=== PATIENT | female | born 1935 | race Caucasian/White ===

== ENCOUNTER 2016-11-20 13:01 | Observation (INO) | payer OTHER ==
[2016-11-20] MEDS ORDERED: ASPIRIN 81 MG CHEWABLE TABLETS PO ONE (13:22)
[2016-11-20] MEDS ORDERED: ASPIRIN 81 MG CHEWABLE TABLETS ONE (13:30)
[2016-11-20 13:58] LABS: BASOPHIL 0.6 % (0-2.0); EOSINOPHIL 2.2 % (0-4.5); MCH 28.5 pg (25.7-33.7); MCHC 33.5 g/dl (32.0-36.0); MEAN CELL VOLUME 85.2 fl (80-96); MEAN PLT VOLUME 7.5 fl (7.5-11.1); NEUTROPHILS 73.8 % (42.8-82.8); PLATELET COUNT 201 K/MM3 (134-434); RDW 14.1 % (11.6-15.6); WHITE BLOOD COUNT 6.7 K/mm3 (4.0-10.0)
[2016-11-20 14:21] LABS: ALBUMIN 3.8 g/dl (3.4-5.0); ANION GAP 10 (8-16); CALCIUM 9.4 mg/dL (8.5-10.1); CO2 25 mmol/L (21-32); CREATININE 0.8 mg/dL (0.55-1.02); GLUCOSE,RANDOM 110 mg/dL (74-106); SGOT/AST 19 U/L (15-37); SGPT/ALT 25 U/L (12-78)
--- NOTE | 2016-11-20 14:24 | PDOC ---
History of Present Illness - General Chief Complaint: Chest Pain Stated Complaint: CHEST PAIN Time Seen by Provider: 11/20/16 13:21 History Source: Patient Exam Limitations: No Limitations - History of Present Illness Initial Comments: 11/20/16 14:24 CHIEF COMPLAINT: Chest pain HISTORY OF PRESENT ILLNESS: This is a 81-year-old female with a history of HTN, HLD, CAD s/p stent in 2006, GERD, HLD, colon ca s/p colectomy, and asthma/COPD who was sent by her elevator service technician today for evaluation of chest pain. She reports intermittent chest "pressure" since Sunday. Pain is provoked by exertion and relieved with rest. She reports associated diaphoresis. She denies shortness of breath and nausea/vomiting. She notes excessive fatigue for the past one month. She had similar fatigue prior to her previous PCI/stent. PCP is Dr. Hardin. Former smoker, quit 30 yrs ago. REVIEW OF SYSTEMS: GENERAL/CONSTITUTIONAL: Fatigue. No fever or chills. No weakness. No weight change. HEAD, EYES, EARS, NOSE AND THROAT: No change in vision. No ear pain or discharge. No sore throat. CARDIOVASCULAR: See HPI. RESPIRATORY: No cough, wheezing, or shortness of breath. GASTROINTESTINAL: Sensation of upper abdominal "swelling." No nausea, vomiting, diarrhea or constipation. GENITOURINARY: No dysuria, frequency, or change in urination. MUSCULOSKELETAL: No joint or muscle swelling or pain. No neck or back pain. SKIN: No rash or easy bruising. NEUROLOGIC: No headache, vertigo, loss of consciousness, or loss of sensation. PSYCHIATRIC: No depression or anxiety. ENDOCRINE: No increased thirst. No abnormal weight change. HEMATOLOGIC/LYMPHATIC: No anemia, easy bleeding, or history of blood clots. ALLERGIC/IMMUNOLOGIC: No hives or skin allergy. No latex allergy. PHYSICAL EXAM: GENERAL: The patient is awake, alert, and fully oriented, in no acute distress. ENT: Pupils equal, round and reactive to light, extraocular movements intact, sclera anicteric, conjunctiva clear. Neck supple. LUNGS: Clear to auscultation bilaterally. Normal excursion. No respiratory distress or use of accessory muscles. CV: RRR, S1/S2, no MRG. Cap refill < 2 sec. ABDOMEN: Soft, non-distended, non-tender. EXTREMITIES: Normal range of motion, no edema. NEUROLOGICAL: Normal speech, normal gait. CN II-XII grossly intact. PSYCH: Normal mood, normal affect. SKIN: Warm, dry, normal turgor, no rashes or lesions noted. Past History - Past Medical History Allergies/Adverse Reactions: Allergies Allergy/AdvReac Type Severity Reaction Status Date / Time Penicillins Allergy Intermediate Hives Verified 11/20/16 13:15 ibuprofen [From Advil] Allergy "heart Verified 11/20/16 13:15 attack like symptoms Home Medications: Ambulatory Orders Aspirin 81 mg PO DAILY 08/08/13 Candesartan Cilexetil [Atacand] 4 mg PO DAILY 08/08/13 Ferrous Sulfate 325 mg PO DAILY 08/08/13 Fluticasone/Salmeterol [Advair Hfa 115-21 Mcg Inhaler] 1 inh PO BID 08/08/13 Metoprolol Succinate [Toprol XL -] 50 mg PO DAILY 08/08/13 Ranitidine [Zantac -] 150 mg PO BID 08/08/13 Albuterol 0.083% Nebulizer Aaliyah [Ventolin 0.083% Nebulizer Soln -] 1 amp NEB QID PRN 11/20/16 Albuterol Sulfate [Proair Respiclick] 1 inh IH DAILY PRN 11/20/16 Ascorbate Calcium [Vitamin C] 500 mg PO DAILY 11/20/16 Atorvastatin Ca [Lipitor] 20 mg PO HS 11/20/16 Furosemide [Lasix] 20 mg PO Q2D 11/20/16 Iron Ps Cmplx/Vit B12/FA [Poly-Iron 150 Forte Capsule] 1 cap PO DAILY 11/20/16 Potassium Chloride 10 meq PO Q2D 11/20/16 Roflumilast [Daliresp] 500 mg PO DAILY 11/20/16 Vitamin B-12 1,000 units PO DAILY 11/20/16 Vitamin D3 1,000 units PO DAILY 11/20/16 Anemia: No Asthma: Yes Cancer: No Cardiac Disorders: Yes (stent (2006)) CVA: No COPD: No CHF: No Dementia: No Diabetes: Yes GI Disorders: Yes (reflux) Disorders: No HTN: Yes Hypercholesterolemia: Yes Liver Disease: No Seizures: No Thyroid Disease: Yes (nodules) - Surgical History Abdominal Surgery: No Appendectomy: No Cardiac Surgery: Yes (stent 2007) Cholecystectomy: No Lung Surgery: No Neurologic Surgery: No Orthopedic Surgery: No - Psycho/Social/Smoking Cessation Hx Suicidal Ideation: No Smoking History: Former smoker Have you smoked in the past 12 months: No If you are a former smoker, when did you quit?: 30 YEARS AGO Information on smoking cessation initiated: No Hx Alcohol Use: No Drug/Substance Use Hx: No Substance Use Type: None Hx Substance Use Treatment: No *Physical Exam - Vital Signs Last Vital Signs Temp Pulse Resp BP Pulse Ox 98.0 F 84 16 155/89 98 11/20/16 13:10 11/20/16 13:10 11/20/16 13:10 11/20/16 13:10 11/20/16 13:10 Heart Score/ECG Review - History History: Highly suspicious - Electrocardiogram EKG: Normal - Age Age: >/= 65 - Risk Factors Risk Factors Heart Score: Yes Hx Hypercholesterolemia, Yes Hx Hypertension, Yes Smoking History Based on the list above the patient has:: >/=3 risk factors or Hx atherosclerotic disease - Troponin Troponin: </= normal limit - Score Heart Score - Total: 6 - ECG Intrepretation Comment:: 11/20/16 14:37 Sinus arrhythmia, 77bpm. ED Treatment Course - LABORATORY CBC & Chemistry Diagram: 11/20/16 12:48 11/20/16 12:48 - ADDITIONAL ORDERS Additional order review: Laboratory Results 11/20/16 12:48 Sodium 142 Potassium 4.1 D Chloride 107 Carbon Dioxide 25 Anion Gap 10 BUN 17 D Creatinine 0.8 Creat Clearance w eGFR > 60 Random Glucose 110 H D Calcium 9.4 AST 19 ALT 25 D Albumin 3.8 11/20/16 12:48 RBC 4.43 D MCV 85.2 MCHC 33.5 RDW 14.1 D MPV 7.5 Neutrophils % 73.8 Lymphocytes % 17.1 Monocytes % 6.3 Eosinophils % 2.2 D Basophils % 0.6 - RADIOLOGY Radiology Studies Ordered: Category Date Time Status CHEST X-RAY PORTABLE* [RAD] Stat Radiology 11/20/16 13:22 Ordered - Medications Given in the ED: ED Medications Discontinued Medications Generic Name Dose Route Start Last Admin Trade Name Freq PRN Reason Stop Dose Admin Aspirin 162 mg 11/20/16 13:22 11/20/16 13:28 Asa - PO 11/20/16 13:23 162 mg ONCE ONE Administration Medical Decision Making - Medical Decision Making 11/20/16 14:35 A/P: 81 year old female with chest discomfort. 1. EKG 2. CXR 3. Cardiac labs 4. ASA 162mg 5. Anticipate admission vs. observation 11/20/16 14:42 CXR: No acute process Troponin <0.02 Will admit to telemetry- discussed with Dr. Medeiros and Dr. Li. *DC/Admit/Observation/Transfer Diagnosis at time of Disposition: Chest pain Qualifiers: Chest pain type: unspecified Qualified Code(s): R07.9 - Chest pain, unspecified - Discharge Dispostion Admit: Yes
[2016-11-20 14:25] LABS: ALK PHOS 62 U/L (45-117); BILIRUBIN,TOTAL 0.7 mg/dL (0.2-1.0); CPK 145 IU/L (26-192); TOT PROT 7.2 g/dl (6.4-8.2); TROPONIN I < 0.02 ng/ml (0.00-0.05)
[2016-11-20 14:34] LABS: INR 1.02 (0.82-1.09); PROTHROMBIN TIME (PATIENT) 11.2 SEC (9.98-11.88)
[2016-11-20] MEDS ORDERED: ALBUTEROL SULFATE IH PRN (15:20)
[2016-11-20] MEDS ORDERED: ACETAMINOPHEN 325 MG TABLET (FP) PO PRN (15:24)
[2016-11-20] MEDS ORDERED: ONDANSETRON 4 MG/2 ML VIAL IVPB PRN (15:24)
[2016-11-20] MEDS ORDERED: NITROGLYCERIN SUBLINGUAL 1/200 0.3 MG BTL SL PRN (15:27)
--- NOTE | 2016-11-20 15:29 | HP ---
Admitting History and Physical - Primary Care Physician PCP: Juan José Hardin - Admission Chief Complaint: I had pressure in my chest History of Present Illness: Mrs Krishna is a very pleasant 81 year old female who comes in with chest pressure. She said it started after eating breakfast. She says it is a heaviness that sits in the middle of her chest. It radiated down her right arm. She felt in mainly on exertion and it would resolve with rest. She had diaphoresis, shortness of breath, anxiety, fatigue, and heartburn associated with it. She is currently pain free now. She denies fevers, chills, lightheadedness, passing out, palpitations, fluttering, coughing, nausea/ vomiting, diarrhea, constipation, difficulty or pain on urination, or swelling. History Source: Patient Limitations to Obtaining History: No Limitations - Past Medical History Cardiovascular: Yes: CAD, HTN Pulmonary: Yes: COPD Gastrointestinal: Yes: Cancer (colon) Endocrine: Yes: Diabetes Mellitus - Past Surgical History Past Surgical History: Yes: Tonsillectomy - Smoking History Smoking history: Former smoker Have you smoked in the past 12 months: No If you are a former smoker, when did you quit?: 30 YEARS AGO - Alcohol/Substance Use Hx Alcohol Use: No History of Substance Use: reports: None - Social History Usual Living Arrangement: Yes: With Spouse ADL: Independent History of Recent Travel: No Home Medications - Allergies Allergies/Adverse Reactions: Allergies Allergy/AdvReac Type Severity Reaction Status Date / Time Penicillins Allergy Intermediate Hives Verified 11/20/16 13:15 ibuprofen [From Advil] Allergy "heart Verified 11/20/16 13:15 attack like symptoms - Home Medications Home Medications: Ambulatory Orders Aspirin 81 mg PO DAILY 08/08/13 Candesartan Cilexetil [Atacand] 4 mg PO DAILY 08/08/13 Ferrous Sulfate 325 mg PO DAILY 08/08/13 Fluticasone/Salmeterol [Advair Hfa 115-21 Mcg Inhaler] 1 inh PO BID 08/08/13 Metoprolol Succinate [Toprol XL -] 50 mg PO DAILY 08/08/13 Ranitidine [Zantac -] 150 mg PO BID 08/08/13 Albuterol 0.083% Nebulizer Aaliyah [Ventolin 0.083% Nebulizer Soln -] 1 amp NEB QID PRN 11/20/16 Albuterol Sulfate [Proair Respiclick] 1 inh IH DAILY PRN 11/20/16 Ascorbate Calcium [Vitamin C] 500 mg PO DAILY 11/20/16 Atorvastatin Ca [Lipitor] 20 mg PO HS 11/20/16 Furosemide [Lasix] 20 mg PO Q2D 11/20/16 Iron Ps Cmplx/Vit B12/FA [Poly-Iron 150 Forte Capsule] 1 cap PO DAILY 11/20/16 Potassium Chloride 10 meq PO Q2D 11/20/16 Roflumilast [Daliresp] 500 mg PO DAILY 11/20/16 Vitamin B-12 1,000 units PO DAILY 11/20/16 Vitamin D3 1,000 units PO DAILY 11/20/16 Family Disease History - Family Disease History Family Disease History: Heart Disease: Mother, CA: Father Review of Systems Findings/Remarks: Full review of systems obtained, as per HPI and otherwise negative Physical Examination Vital Signs: Vital Signs Temperature 36.7 C 11/20/16 13:10 Pulse Rate 84 11/20/16 13:10 Respiratory Rate 16 11/20/16 13:10 Blood Pressure 155/89 11/20/16 13:10 O2 Sat by Pulse Oximetry (%) 98 11/20/16 13:10 Constitutional: Yes: Well Nourished, No Distress, Calm Eyes: Yes: Conjunctiva Clear, EOM Intact, PERRL HENT: Yes: Atraumatic, Normocephalic Cardiovascular: Yes: Regular Rate and Rhythm. No: Gallop, Murmur, Rub Respiratory: Yes: Regular, CTA Bilaterally. No: Rales, Rhonchi, Wheezes Gastrointestinal: Yes: Normal Bowel Sounds, Soft. No: Distention, Tenderness Extremities: Yes: WNL Edema: No Labs: CBC, BMP 11/20/16 12:48 11/20/16 12:48 Imaging - Results Chest X-ray: Report Reviewed, Image Reviewed EKG: Image Reviewed Problem List - Problems (1) Unstable angina Assessment/Plan: -patient presents with exertional angina -new in onset and similar to previous episodes of AMI -however first set of cardiac enzymes negative -also EKG unchanged -admit to telemetry under observation -cardiology consult, followed by Dr Li -cardiac enzymes x3 -will make npo after midnight for possible stress test Code(s): I20.0 - UNSTABLE ANGINA (2) HTN (hypertension) Assessment/Plan: -controlled -continue home regimen Code(s): I10 - ESSENTIAL (PRIMARY) HYPERTENSION (3) CAD (coronary artery disease) Assessment/Plan: -cardiology consult -continue home regimen -cardiac enzymes as above Code(s): I25.10 - ATHSCL HEART DISEASE OF [place] CORONARY ARTERY W/O ANG PCTRS (4) COPD (chronic obstructive pulmonary disease) Assessment/Plan: -not in exacerbation -continue home regimen Code(s): J44.9 - CHRONIC OBSTRUCTIVE PULMONARY DISEASE, UNSPECIFIED (5) HLD (hyperlipidemia) Assessment/Plan: -continue statin Code(s): E78.5 - HYPERLIPIDEMIA, UNSPECIFIED (6) Diabetes Assessment/Plan: -says has history of diabetes, however not on medication -diet controlled -diabetic diet, monitor glucose on bmp Code(s): E11.9 - TYPE 2 DIABETES MELLITUS WITHOUT COMPLICATIONS
--- NOTE | 2016-11-20 20:40 | CONS ---
DATE OF CONSULTATION: 11/20/2016 TIME OF CONSULTATION: 7:30 p.m. REQUESTING PHYSICIAN: Duane Medeiros MD CARDIOLOGY CONSULTATION CHIEF COMPLAINT: 1. Chest pain. 2. Shortness of breath. HISTORY OF PRESENT ILLNESS: The patient is a 81-year-old white female with longstanding history of coronary artery disease, angina pectoris, status post PCI/stenting, history of hypertension, dyslipidemia, gastroesophageal reflux disease, bronchial asthma, chronic obstructive pulmonary disease, history of proteinuria, who developed anterior pressure-like chest discomfort on Sunday, while having breakfast. This was accompanied by shortness of breath and diaphoresis. The pain radiated to the right elbow and lasted for approximately half an hour. She then started having recurrent episodes of chest discomfort with minimal exertion, lasting between 10-15 minutes and would ted spontaneously or if she rested. She states that she had 5-6 episodes yesterday. Most of these episodes were not accompanied by either shortness of breath or diaphoresis. Today, she developed chest discomfort on waking up in the morning that lasted for 5 minutes and was not accompanied by either diaphoresis or shortness of breath. She had recurrence of mild chest discomfort when she walked to her car that lasted no more than 2 minutes and had another episode while walking to her arm rest builder's office. She spoke to the arm rest builder about her symptoms, who asked her to come to my office. She states that when she walked to the office, she had recurrence of chest discomfort, which was mild. There is no history of exertional dyspnea, paroxysmal nocturnal dyspnea, or orthopnea. There is no history of lightheadedness, dizziness, presyncope, or syncope. PAST HISTORY: As mentioned in the History of Present Illness. SURGICAL HISTORY: 1. Status post tonsillectomy. 2. Status post partial colectomy for carcinoma of the colon. SOCIAL HISTORY: She is . 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 She has 4 children; 3 sons and a daughter who are all healthy. She smoked approximately 1 pack of cigarettes per day from age 23 to 50 years. She states that she stopped in between for a total of 5 years. There is no history of excessive alcohol use. She has one cup of coffee daily. On occasion, she has another cup at nighttime. FAMILY HISTORY: Father at 57, related to carcinoma of the lung. Mother at 72 of a myocardial infarction. Has 1 brother who has arthritis. ALLERGIES: 1. PENICILLIN CAUSES RASH AND HIVES. 2. ADVIL CAUSES PALPITATIONS. MEDICATIONS: Prior to admission, the patient was on the following medicines: 1. Daliresp 500 mg p.o. daily. 2. Zantac 150 mg p.o. b.i.d. 3. Lipitor 20 mg alternating with 40 mg. 4. Toprol XL 50 mg p.o. daily at bedtime. 5. Atacand 4 mg p.o. daily. 6. Lasix 20 mg p.o. daily. 7. Potassium supplement. Dose is uncertain, but 1 p.o. every other day. 8. Folic acid 1 mg p.o. daily. 9. Iron supplement 150 mg p.o. daily. 10. Advair 2 inhalations b.i.d. 11. Pro-Air 1 inhalations q.i.d. p.r.n. 12. Aspirin 81 mg p.o. daily. 13. Vitamin D3 1000 international units p.o. daily. 14. Vitamin C 500 mg p.o. daily. 15. Vitamin B12 1000 mcg p.o. daily. 16. Nitrostat 0.4 mg sublingual p.r.n. for chest discomfort. MEDICATIONS ON ADMISSION: 1. Atacand has been substituted for Diovan 40 mg p.o. daily. 2. Zofran 4 mg IV q6 hours p.r.n. 3. Lovenox 40 mg subcutaneously daily. 4. Albuterol via nebulizer q.i.d. p.r.n. 5. Colace 100 mg p.o. b.i.d. 6. MiraLAX 17 g p.o. daily. REVIEW OF SYSTEMS: Constitutional: History of night sweats on Sunday and Sunday. No history of chills or fever. No history of unintentional weight loss. HEENT: No history of headache, diplopia, blurred vision. No history of epistaxis, hoarseness, tinnitus, or deafness reported. Cardiovascular: See the History of Present Illness. Respiratory: See the History of Present Illness. No history of hemoptysis or tuberculosis. Gastrointestinal: No history of nausea, vomiting, melena, or hematemesis. Patient states that today she developed recurrent episodes of heartburn. No history of abdominal pain or discomfort. No history of change in bowel habits. Central Nervous System: No history of lightheadedness, dizziness, presyncope, or syncope. No history of seizures. No history of focal weakness. Endocrine: See the History of Present Illness. No history of intolerance to cold or warm weather, no history of polyuria or polydipsia. History of thyroid nodules. Musculoskeletal: History of osteoarthritis of the knees and hands. Hematologic: History of anemia. No history of ecchymosis or bleeding. Lymphatic: No history of lymphadenopathy. Psychological: No history of depression. PHYSICAL EXAMINATION: General: A 81-year-old female at the time of examination was in no distress, no pallor, cyanosis, clubbing, or jaundice. Vital signs: Blood pressure 141/78 mmHg, pulse 64 beats per minute and regular, patient was afebrile, respirations 16 per minute, weight was 175 pounds, O2 saturation was 99% on room air. Neck: Supple, no jugular venous distention. Hepatojugular reflux was negative. Carotids were 2+. Upstrokes were normal. No bruits were heard. No thyromegaly was appreciated. Heart: PMI was in the 5th intercostal space. No heaves or thrills. S1, S2 were normal. No murmur or gallops were heard. Lungs: Clear to auscultation. Chest: Normal AP diameter. Expansion was symmetrical. Abdomen: Soft, protuberant, and nontender. No hepatosplenomegaly or palpable masses were felt. Bowel sounds are active. No bruits were heard. Extremities: No calf tenderness or dependent edema. Pulses were equal. ECG in the office revealed normal sinus rhythm with nonspecific ST changes. LABORATORY DATA: CBC on November 20, 2016: WBC count was 6,700, hemoglobin 12.6 g/dL, platelet count was 201,000 with normal differential. Chemistry: Sodium 142, potassium 4.1, chloride 107, CO2 25 mmol/L. BUN 17, creatinine 0.8 mg/dl. Random glucose was 110 mg/dL. Troponin were less than 0.02. CK was 145. RADIOLOGY: X-ray of the chest, Impression: No evidence of active pulmonary disease. IMPRESSION: 1. Coronary artery disease, status post percutaneous coronary intervention/stenting, recurrence of angina pectoris. 2. Noninsulin dependent diabetes mellitus. 3. Hypertension, currently normotensive. 4. Hypercholesterolemia. 5. Bronchial asthma. 6. History of chronic obstructive pulmonary disease. 7. History of proteinuria. RECOMMENDATIONS: 1. Serial EKG and enzymes. 2. Echocardiogram. 3. Submaximal Myoview stress test. 4. Continue current medications. 5. Stat ECG during episodes of chest discomfort. 6. Sublingual nitroglycerin if the patient has chest pain and notify MD. 7. Further suggestions will depend upon the results of the above mentioned test. PROGNOSIS: Guarded. Thank you for your referral. ARTIE CUMMINS M.D. [id number]
[2016-11-20] MEDS: ATORVASTATIN CA 20 MG TABLET (FP) PO SCH (21:27)
[2016-11-20] MEDS: DOCUSATE SODIUM 100 MG CAPSULE (FP) PO SCH (21:27)
[2016-11-20] MEDS: RANITIDINE HCL 150 MG TABLET (FP) PO SCH (21:27)
[2016-11-20] MEDS ORDERED: PATIENT'S OWN MEDICATION (NON-FORMULARY) (Fluticasone/Salmeterol [Advair Hfa 115-21 Mcg In PO SCH (22:00)
[2016-11-20 22:41] LABS: CPK 101 IU/L (26-192)
[2016-11-20 22:42] LABS: TROPONIN I < 0.02 ng/ml (0.00-0.05)
[2016-11-21] MEDS: ALBUTEROL SO4 0.083% IH SOL 2.5 MG/3 ML VIAL.NEB. NEB PRN ×3 (06:54→22:45)
[2016-11-21 08:17] LABS: BASOPHIL 0.7 % (0-2.0); EOSINOPHIL 6.3 % (0-4.5); MCH 29.5 pg (25.7-33.7); MCHC 34.7 g/dl (32.0-36.0); MEAN CELL VOLUME 85.1 fl (80-96); MEAN PLT VOLUME 7.8 fl (7.5-11.1); NEUTROPHILS 58.8 % (42.8-82.8); PLATELET COUNT 169 K/MM3 (134-434); RDW 13.9 % (11.6-15.6)
[2016-11-21 08:33] LABS: ANION GAP 9 (8-16); CALCIUM 8.9 mg/dL (8.5-10.1); CO2 26 mmol/L (21-32); MAGNESIUM 2.1 mg/dL (1.8-2.4)
[2016-11-21 08:34] LABS: CREATININE 0.8 mg/dL (0.55-1.02); GLUCOSE,RANDOM 99 mg/dL (74-106); PHOSPHOROUS 2.9 mg/dL (2.5-4.9)
[2016-11-21 08:54] LABS: CPK 96 IU/L (26-192); TROPONIN I < 0.02 ng/ml (0.00-0.05)
[2016-11-21] MEDS ORDERED: [UNRECOGNIZED DRUG - OTHER] PO SCH (10:00)
[2016-11-21] MEDS ORDERED: VIT B12 PO SCH (10:00)
[2016-11-21] MEDS ORDERED: DIPYRIDAMOLE STRESS TEST 45.3 MG in DEXTROSE 5%-WATER - 36.24 ML IVPB ONE (10:00)
[2016-11-21] MEDS ORDERED: IRON PS CMPLX PO SCH (10:00)
[2016-11-21] MEDS: ENOXAPARIN NA (PORCINE) 40 MG/0.4 ML DISP.SYRIN SQ SCH (15:03)
[2016-11-21] MEDS: VALSARTAN 40 MG TABLET (FP) PO SCH (15:03)
[2016-11-21] MEDS: RANITIDINE HCL 150 MG TABLET (FP) PO SCH ×2 (15:03→21:03)
[2016-11-21] MEDS: CYANOCOBALAMIN 1,000 MCG TABLET (FP) PO SCH (15:03)
[2016-11-21] MEDS: DOCUSATE SODIUM 100 MG CAPSULE (FP) PO SCH ×2 (15:03→21:03)
[2016-11-21] MEDS: ASCORBIC ACID 500 MG TABLET (FP) PO SCH (15:04)
[2016-11-21] MEDS: METOPROLOL SUCCINATE 50 MG TAB.SR.24H (FP) PO SCH (15:04)
[2016-11-21] MEDS: ROFLUMILAST 500 MCG TABLET PO SCH (15:04)
[2016-11-21] MEDS: ASPIRIN 81 MG CHEWABLE TABLETS PO SCH (15:04)
[2016-11-21] MEDS: CHOLECALCIFEROL (VITAMIN D3) 1,000 UNIT TABLET (FP) PO SCH (15:04)
[2016-11-21] MEDS: POLYETHYLENE GLYCOL 3350 119 GM BTL PO SCH (15:08)
--- NOTE | 2016-11-21 15:42 | PN ---
Progress Note, Physician Chief Complaint: Mrs Krishna says she feels tired from all the tests, but otherwise she is doing well. She is no longer having chest pain. She denies sob and n/v. - Current Medication List Current Medications: Active Medications Acetaminophen (Tylenol -) 650 mg PO Q4H PRN PRN Reason: FEVER OR PAIN Albuterol Sulfate (Ventolin 0.083% Nebulizer Soln -) 1 amp NEB QID PRN PRN Reason: ASTHMA Last Admin: 11/21/16 06:54 Dose: 1 amp Ascorbic Acid (Vitamin C -) 500 mg PO DAILY [facility] Last Admin: 11/21/16 15:04 Dose: 500 mg Aspirin (Asa -) 81 mg PO DAILY [facility] Last Admin: 11/21/16 15:04 Dose: 81 mg Atorvastatin Calcium (Lipitor -) 20 mg PO HS [facility] Last Admin: 11/20/16 21:27 Dose: 20 mg Cholecalciferol (Vitamin D3 -) 1,000 unit PO DAILY [facility] Last Admin: 11/21/16 15:04 Dose: 1,000 unit Cyanocobalamin (Vitamin B12 -) 1,000 mcg PO DAILY [facility] Last Admin: 11/21/16 15:03 Dose: 1,000 mcg Docusate Sodium (Colace -) 100 mg PO BID [facility] Last Admin: 11/21/16 15:03 Dose: 100 mg Enoxaparin Sodium (Lovenox -) 40 mg SQ DAILY [facility] Last Admin: 11/21/16 15:03 Dose: 40 mg Furosemide (Lasix -) 20 mg PO Q2D [facility] Dobutamine HCl 100,000 mcg/ (Dextrose) 100 mls @ 23.81 mls/hr IVPB ONCE ONE; 5 MCG/KG/MIN PRN Reason: Protocol Stop: 11/21/16 19:56 Metoprolol Succinate (Toprol Xl -) 50 mg PO DAILY [facility] Last Admin: 11/21/16 15:04 Dose: 50 mg Non-Formulary Medication (Albuterol Sulfate [Proair Respiclick]) 1 inh IH DAILY PRN PRN Reason: ASTHMA Non-Formulary Medication (Fluticasone/Salmeterol [Advair Hfa 115-21 Mcg Inhaler] ) 1 inh PO BID [facility] Non-Formulary Medication (Iron Ps Cmplx/Vit B12/Fa [Poly-Iron 150 Forte Capsule] ) 1 cap PO DAILY [facility] Ondansetron HCl (Zofran Injection) 4 mg IVPB Q6H PRN PRN Reason: NAUSEA Polyethylene Glycol (Miralax (For Daily Use) -) 17 gm PO DAILY [facility] Last Admin: 11/21/16 15:08 Dose: 17 gm Potassium Chloride (K-Dur -) 10 meq PO Q2D [facility] Ranitidine HCl (Zantac -) 150 mg PO BID [facility] Last Admin: 11/21/16 15:03 Dose: 150 mg Roflumilast (Daliresp -) 500 mcg PO DAILY [facility] Last Admin: 11/21/16 15:04 Dose: 500 mcg Valsartan (Diovan -) 40 mg PO DAILY [facility] Last Admin: 11/21/16 15:03 Dose: 40 mg - Objective Vital Signs: Vital Signs Temperature 36.6 C 11/21/16 15:24 Pulse Rate 84 11/21/16 15:24 Respiratory Rate 20 11/21/16 08:00 Blood Pressure 128/74 11/21/16 15:24 O2 Sat by Pulse Oximetry (%) 98 11/21/16 08:00 Constitutional: Yes: Well Nourished, No Distress, Calm Cardiovascular: Yes: Regular Rate and Rhythm. No: Gallop, Murmur, Rub Respiratory: Yes: Regular, CTA Bilaterally. No: Rales, Rhonchi, Wheezes Gastrointestinal: Yes: Normal Bowel Sounds, Soft. No: Distention, Tenderness Extremities: Yes: WNL Edema: No Labs: CBC, BMP 11/21/16 05:35 11/21/16 05:35 INR, PTT INR 1.02 (0.82-1.09) 11/20/16 12:48 Problem List - Problems (1) Unstable angina Code(s): I20.0 - UNSTABLE ANGINA (2) HTN (hypertension) Code(s): I10 - ESSENTIAL (PRIMARY) HYPERTENSION (3) CAD (coronary artery disease) Code(s): I25.10 - ATHSCL HEART DISEASE OF [place] CORONARY ARTERY W/O ANG PCTRS (4) COPD (chronic obstructive pulmonary disease) Code(s): J44.9 - CHRONIC OBSTRUCTIVE PULMONARY DISEASE, UNSPECIFIED (5) HLD (hyperlipidemia) Code(s): E78.5 - HYPERLIPIDEMIA, UNSPECIFIED (6) Diabetes Code(s): E11.9 - TYPE 2 DIABETES MELLITUS WITHOUT COMPLICATIONS Assessment/Plan (1) Unstable angina Assessment/Plan: -cardiac enzymes x3 negative -stress test and echo done, read pending -if normal, can d/c in am Code(s): I20.0 - UNSTABLE ANGINA (2) HTN (hypertension) Assessment/Plan: -controlled -continue home regimen Code(s): I10 - ESSENTIAL (PRIMARY) HYPERTENSION (3) CAD (coronary artery disease) Assessment/Plan: -cardiology consult -continue home regimen -follow up stress test and echo results Code(s): I25.10 - ATHSCL HEART DISEASE OF [place] CORONARY ARTERY W/O ANG PCTRS (4) COPD (chronic obstructive pulmonary disease) Assessment/Plan: -not in exacerbation -continue home regimen Code(s): J44.9 - CHRONIC OBSTRUCTIVE PULMONARY DISEASE, UNSPECIFIED (5) HLD (hyperlipidemia) Assessment/Plan: -continue statin Code(s): E78.5 - HYPERLIPIDEMIA, UNSPECIFIED (6) Diabetes Assessment/Plan: -says has history of diabetes, however not on medication -diet controlled -diabetic diet, monitor glucose on bmp Code(s): E11.9 - TYPE 2 DIABETES MELLITUS WITHOUT COMPLICATIONS
[2016-11-21] MEDS ORDERED: DOBUTAMINE HCL 100,000 MCG in DEXTROSE 5%-WATER - 92 ML IVPB ONE (15:45)
[2016-11-21] MEDS: FLUTICASONE/SALMETEROL 100 MCG/50 MCG DISKUS IH SCH ×2 (21:00→21:06)
[2016-11-21] MEDS: ATORVASTATIN CA 20 MG TABLET (FP) PO SCH (21:03)
--- NOTE | 2016-11-21 21:15 | PN ---
Progress Note (short form) - Note Progress Note: No chest pain or discomfort reported. 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 (Detailed report to follow). . Active Medications Acetaminophen (Tylenol -) 650 mg PO Q4H PRN PRN Reason: FEVER OR PAIN Albuterol Sulfate (Ventolin 0.083% Nebulizer Soln -) 1 amp NEB QID PRN PRN Reason: ASTHMA Last Admin: 11/21/16 16:54 Dose: 1 amp Ascorbic Acid (Vitamin C -) 500 mg PO DAILY [facility] Last Admin: 11/21/16 15:04 Dose: 500 mg Aspirin (Asa -) 81 mg PO DAILY [facility] Last Admin: 11/21/16 15:04 Dose: 81 mg Atorvastatin Calcium (Lipitor -) 20 mg PO HS [facility] Last Admin: 11/21/16 21:03 Dose: 20 mg Cholecalciferol (Vitamin D3 -) 1,000 unit PO DAILY [facility] Last Admin: 11/21/16 15:04 Dose: 1,000 unit Cyanocobalamin (Vitamin B12 -) 1,000 mcg PO DAILY [facility] Last Admin: 11/21/16 15:03 Dose: 1,000 mcg Docusate Sodium (Colace -) 100 mg PO BID [facility] Last Admin: 11/21/16 21:03 Dose: 100 mg Enoxaparin Sodium (Lovenox -) 40 mg SQ DAILY [facility] Last Admin: 11/21/16 15:03 Dose: 40 mg Furosemide (Lasix -) 20 mg PO Q2D [facility] Metoprolol Succinate (Toprol Xl -) 50 mg PO DAILY [facility] Last Admin: 11/21/16 15:04 Dose: 50 mg Non-Formulary Medication (Albuterol Sulfate [Proair Respiclick]) 1 inh IH DAILY PRN PRN Reason: ASTHMA Non-Formulary Medication (Iron Ps Cmplx/Vit B12/Fa [Poly-Iron 150 Forte Capsule] ) 1 cap PO DAILY [facility] Ondansetron HCl (Zofran Injection) 4 mg IVPB Q6H PRN PRN Reason: NAUSEA Polyethylene Glycol (Miralax (For Daily Use) -) 17 gm PO DAILY [facility] Last Admin: 11/21/16 15:08 Dose: 17 gm Potassium Chloride (K-Dur -) 10 meq PO Q2D [facility] Ranitidine HCl (Zantac -) 150 mg PO BID [facility] Last Admin: 11/21/16 21:03 Dose: 150 mg Roflumilast (Daliresp -) 500 mcg PO DAILY [facility] Last Admin: 11/21/16 15:04 Dose: 500 mcg Fluticasone/Salmeterol (Advair 100mcg/50mcg -) 1 puff IH BID [facility] Last Admin: 11/21/16 21:06 Dose: Not Given Valsartan (Diovan -) 40 mg PO DAILY [facility] Last Admin: 11/21/16 15:03 Dose: 40 mg Vital Signs 11/21/16 11/21/16 15:24 19:00 Temperature 97.9 F 97.8 F Pulse Rate 84 71 Respiratory 18 Rate Blood Pressure 128/74 105/58 O: NECK: No JVD,carotids upstrokes are 2+. HEART: No heaves or thrills s1 & S2 are normal.No murmur or gallops LUNGS: Clear. ABDOMEN: Soft, nontender,no organomegaly. EXT:No edema or calf tenderness. CBC, BMP 11/21/16 05:35 11/21/16 05:35 A: 1. CAD S/P PCI/STENTING, angina pectoris 2. Diabetes mellitus. 3. Hypertension. 4. Bronchial asthma RECOMMENDATIONS: 1. Add Ranexa,500 mg.PO Q12H (suspect small vessel disease). 2. If symptoms continue will advise coronary angiogram. 3. Must carry nitroglycerine and is aware of potential side effects.
[2016-11-22] MEDS: ALBUTEROL SO4 0.083% IH SOL 2.5 MG/3 ML VIAL.NEB. NEB PRN (06:36)
[2016-11-22] MEDS ORDERED: BREO PO SCH (07:00)
[2016-11-22 08:02] LABS: BASOPHIL 0.6 % (0-2.0); EOSINOPHIL 5.9 % (0-4.5); MCH 28.7 pg (25.7-33.7); MCHC 33.7 g/dl (32.0-36.0); MEAN CELL VOLUME 85.3 fl (80-96); MEAN PLT VOLUME 7.8 fl (7.5-11.1); NEUTROPHILS 58.1 % (42.8-82.8); PLATELET COUNT 177 K/MM3 (134-434); RDW 14.1 % (11.6-15.6); WHITE BLOOD COUNT 4.6 K/mm3 (4.0-10.0)
[2016-11-22 08:13] VITALS: BP 114/67; TEMP 98.1
[2016-11-22 08:25] LABS: ANION GAP 6 (8-16); CALCIUM 8.7 mg/dL (8.5-10.1); CO2 28 mmol/L (21-32); CREATININE 0.9 mg/dL (0.55-1.02); GLUCOSE,RANDOM 119 mg/dL (74-106); MAGNESIUM 2.1 mg/dL (1.8-2.4); PHOSPHOROUS 3.4 mg/dL (2.5-4.9)
[2016-11-22] MEDS: ASPIRIN 81 MG CHEWABLE TABLETS PO SCH (09:09)
[2016-11-22] MEDS: FLUTICASONE/SALMETEROL 100 MCG/50 MCG DISKUS IH SCH (09:09)
[2016-11-22] MEDS: ENOXAPARIN NA (PORCINE) 40 MG/0.4 ML DISP.SYRIN SQ SCH (09:09)
[2016-11-22] MEDS: ASCORBIC ACID 500 MG TABLET (FP) PO SCH (09:10)
[2016-11-22] MEDS: DOCUSATE SODIUM 100 MG CAPSULE (FP) PO SCH (09:10)
[2016-11-22] MEDS: CHOLECALCIFEROL (VITAMIN D3) 1,000 UNIT TABLET (FP) PO SCH (09:10)
[2016-11-22] MEDS: RANITIDINE HCL 150 MG TABLET (FP) PO SCH (09:10)
[2016-11-22] MEDS: CYANOCOBALAMIN 1,000 MCG TABLET (FP) PO SCH (09:10)
[2016-11-22] MEDS: VALSARTAN 40 MG TABLET (FP) PO SCH (09:10)
[2016-11-22] MEDS: METOPROLOL SUCCINATE 50 MG TAB.SR.24H (FP) PO SCH (09:10)
[2016-11-22] MEDS: ROFLUMILAST 500 MCG TABLET PO SCH (09:10)
[2016-11-22] MEDS: POLYETHYLENE GLYCOL 3350 119 GM BTL PO SCH (09:11)
[2016-11-22] MEDS ORDERED: FUROSEMIDE 20 MG TABLET (FP) PO SCH (10:00)
[2016-11-22] MEDS ORDERED: POTASSIUM CHLORIDE TABS 10 MEQ TABLET.ER (FP) PO SCH (10:00)
--- NOTE | 2016-11-22 11:24 | DS ---
Physical Examination Vital Signs: Vital Signs Temperature 36.7 C 11/22/16 08:12 Pulse Rate 74 11/22/16 08:12 Respiratory Rate 20 11/22/16 08:12 Blood Pressure 114/67 11/22/16 08:12 O2 Sat by Pulse Oximetry (%) 97 11/22/16 08:00 Constitutional: Yes: Well Nourished, No Distress, Calm Cardiovascular: Yes: Regular Rate and Rhythm. No: Gallop, Murmur, Rub Respiratory: Yes: Regular, CTA Bilaterally. No: Rales, Rhonchi, Wheezes Gastrointestinal: Yes: Normal Bowel Sounds, Soft. No: Distention, Tenderness Extremities: Yes: WNL Edema: No Labs: CBC, BMP 11/22/16 06:00 11/22/16 06:00 Discharge Summary Reason For Visit: CHEST PAIN Current Active Problems CAD (coronary artery disease) (Acute) COPD (chronic obstructive pulmonary disease) (Acute) Chest pain (Acute) Diabetes (Acute) HLD (hyperlipidemia) (Acute) HTN (hypertension) (Acute) Unstable angina (Acute) Hospital Course: (1) Unstable angina Code(s): I20.0 - UNSTABLE ANGINA (2) HTN (hypertension) Code(s): I10 - ESSENTIAL (PRIMARY) HYPERTENSION (3) CAD (coronary artery disease) Code(s): I25.10 - ATHSCL HEART DISEASE OF [place] CORONARY ARTERY W/O ANG PCTRS (4) COPD (chronic obstructive pulmonary disease) Code(s): J44.9 - CHRONIC OBSTRUCTIVE PULMONARY DISEASE, UNSPECIFIED (5) HLD (hyperlipidemia) Code(s): E78.5 - HYPERLIPIDEMIA, UNSPECIFIED (6) Diabetes Code(s): E11.9 - TYPE 2 DIABETES MELLITUS WITHOUT COMPLICATIONS Mrs Krishna is a very pleasant 81 year old female who comes in with chest pain. She was admitted under observation to telemetry. She had cardiac enzymes x3 and were negative. She had stress test and echo that were negative. She was cleared by cardiology for discharge home. Ranexa and NTG were added. She is safe for discharge. Condition: Good - Instructions Diet, Activity, Other Instructions: resume previous diet and activity Referrals: Juan José Hardin MD [Staff Physician] - Ethan Li MD [Staff Physician] - Disposition: HOME - Home Medications Comprehensive Discharge Medication List: Ambulatory Orders Aspirin 81 mg PO DAILY 08/08/13 Candesartan Cilexetil [Atacand] 4 mg PO DAILY 08/08/13 Ferrous Sulfate 325 mg PO DAILY 08/08/13 Fluticasone/Salmeterol [Advair Hfa 115-21 Mcg Inhaler] 1 inh PO BID 08/08/13 Metoprolol Succinate [Toprol XL -] 50 mg PO DAILY 08/08/13 Ranitidine [Zantac -] 150 mg PO BID 08/08/13 Albuterol 0.083% Nebulizer Aaliyah [Ventolin 0.083% Nebulizer Soln -] 1 amp NEB QID PRN 11/20/16 Albuterol Sulfate [Proair Respiclick] 1 inh IH DAILY PRN 11/20/16 Ascorbate Calcium [Vitamin C] 500 mg PO DAILY 11/20/16 Atorvastatin Ca [Lipitor] 20 mg PO HS 11/20/16 Furosemide [Lasix] 20 mg PO Q2D 11/20/16 Iron Ps Cmplx/Vit B12/FA [Poly-Iron 150 Forte Capsule] 1 cap PO DAILY 11/20/16 Potassium Chloride 10 meq PO Q2D 11/20/16 Roflumilast [Daliresp] 500 mg PO DAILY 11/20/16 Vitamin B-12 1,000 units PO DAILY 11/20/16 Vitamin D3 1,000 units PO DAILY 11/20/16 Ranolazine [Ranexa] 500 mg PO Q12H #60 tab.er.12h 11/22/16
[2016-11-22 11:52] VITALS: PULSE 62
--- NOTE | 2016-11-22 16:48 | EKG ---
Test Reason : Blood Pressure : / mmHG Vent. Rate : 077 BPM Atrial Rate : 077 BPM P-R Int : 166 ms QRS Dur : 100 ms QT Int : 386 ms P-R-T Axes : 063 052 042 degrees QTc Int : 436 ms NORMAL SINUS RHYTHM WITH SINUS ARRHYTHMIA LOW VOLTAGE QRS BORDERLINE ECG WHEN COMPARED WITH ECG OF 08-AUG-2013 16:58, NO SIGNIFICANT CHANGE WAS FOUND Confirmed by ARTIE CUMMINS MD ([id number]) on 11/22/2016 4:47:56 PM Referred By: Confirmed By:ARTIE CUMMINS MD
== END 2016-11-22 13:44 | disposition home or self-care (01) ==
LOC: JER 13:01 → JERBED 14:39 → J4W 20:59
PROVIDERS: ADMIT Internal Medicine; ATTEND Internal Medicine
PROC: 3E033GC Introduction of Other Therapeutic Substance into Peripheral Vein, Percutaneous Approach (ICD-10-PCS; principal; 2016-11-20)
PROC: 3E013GC Introduction of Other Therapeutic Substance into Subcutaneous Tissue, Percutaneous Approach (ICD-10-PCS; 2016-11-20)
PROC: 3E0F7GC Introduction of Other Therapeutic Substance into Respiratory Tract, Via Natural or Artificial Opening (ICD-10-PCS; 2016-11-20)
DX: I20.0 Unstable angina (principal); R07.9 Chest pain, unspecified; I10 Essential (primary) hypertension; I25.10 Atherosclerotic heart disease of native coronary artery without angina pectoris; E78.5 Hyperlipidemia, unspecified; E11.9 Type 2 diabetes mellitus without complications; J45.909 Unspecified asthma, uncomplicated; J44.9 Chronic obstructive pulmonary disease, unspecified; Z95.5 Presence of coronary angioplasty implant and graft; Z85.038 Personal history of other malignant neoplasm of large intestine; Z90.49 Acquired absence of other specified parts of digestive tract; Z88.0 Allergy status to penicillin; Z88.6 Allergy status to analgesic agent; Z79.82 Long term (current) use of aspirin; Z87.891 Personal history of nicotine dependence
CPT/HCPCS: 36415; 71010-TC; 78452-TC; 80048; 80053; 83735; 84100; 84484; 85025; 85610; 93005; 93010; 93017; 93306-TC; 94640; 99284-25; A9502; G0378

== ENCOUNTER 2017-03-28 21:34 | Observation (INO) | payer OTHER ==
--- NOTE | 2017-03-28 21:39 | PDOC ---
History of Present Illness - History of Present Illness Initial Comments: 03/28/17 21:51 The patient is a 81 year old female, with a significant past medical history of diabetes, hypertension, asthma, COPD, CAD s/p stents, hyperlipidemia, colon cancer s/p partial colectomy, who presents to the emergency department with a right forearm burn for a couple of days. Patient states she burned he right forearm with a hot pain a couple of days ago (shes not sure of the exact day). She went to urgent care earlier today with her daughter and they referred her to the ER. She experienced some diaphoresis, but denies fever. She denies recent chills, headache or dizziness. She denies recent nausea, vomit , diarrhea or constipation. She denies recent dysuria, frequency, urgency or hematuria. She denies recent chest pain or shortness of breath. PAST MEDICAL HISTORY: diabetes, hypertension, asthma, COPD, CAD s/p stents, hyperlipidemia, colon cancer s/p partial colectomy. FAMILY HISTORY: no pertinent history SOCIAL HISTORY: Pt lives with family and is retired. MEDICATIONS: reviewed ALLERGIES: as per nursing notes. ROS General: + diaphoresis. No fevers or chills, no weakness, no weight loss HEENT: No change in vision. No sore throat, No ear pain Cardiovascular: No chest pain or shortness of breath Respiratory:No cough, or wheezing. Gastrointestinal: No nausea, vomiting, diarrhea or constipation, No rectal bleeding Genitourinary: No dysuria, hematuria, or frequency Musculoskeletal: No joint or muscle pain or swelling Neurologic: No headache, vertigo, dizziness or loss of consciousness Psychiatric: No depression Skin: + 2nd degree burn on right forearm. No rashes or easy bruising Endocrine: No increased thirst or abnormal weight change Allergic: No skin or latex allergy All other systems reviewed and normal PE: General: Well-nourished well-developed individual, no acute distress HEENT: Throat: Normal, tonsils normal, no erythema or exudate Neck: Supple, no meningeal signs, no lymphadenopathy Eyes::Pupils equal reactive and round, extraocular motion intact Chest: Nontender to palpation Cardiac: S1-S2 normal, regular rate and rhythm, no murmurs rubs or gallops Respiratory: Lungs clear to auscultation bilateral Abdomen: Soft, nondistended, normal bowel sounds, nontender to palpation diffusely Extremities: Warm, dry, no cyanosis, clubbing, or edema Skin:Right forearm area with 2nd degree burn,small 3rd degree burn portion. Associated cellulitis component, with erythema, purulent discharge and swelling. Neuro: Alert and oriented x3, nonfocal exam, grossly intact, normal gait Psych: Normal mood and affect <Cherrie Ghosh - Last Filed: 03/28/17 21:54> - General History Source: Patient Exam Limitations: No Limitations - History of Present Illness Initial Comments: 03/28/17 22:48 A portion of this note was documented by scribe services under my direction. I have reviewed the details of the note, within reason, and agree with the documentation. The case summary and management plan written by me. Assessment and plan: This is a 81-year-old female with history of multiple medical problems including diabetes. Patient comes in complaining of an infection of her right forearm. Patient sustained a burn to the arm approximately 3-4 days ago and it is now become infected with some purulent discharge and moderate amount of erythema/cellulitis. Patient has been having some chills but denied any fevers. Patient does have a normal white count with no left shift and otherwise normal labs. Patient was given a dose of Invanz as she is ALLERGIC to penicillins. Patient will be placed in to an observation bed given the fact she is immunocompromised secondary to her diabetes. <Lavon Prado I - Last Filed: 03/28/17 23:02> - General Chief Complaint: Burn Stated Complaint: BURN Time Seen by Provider: 03/28/17 21:37 Past History <Cherrie Ghosh - Last Filed: 03/28/17 21:54> - Past Medical History Anemia: No Asthma: Yes Cancer: No Cardiac Disorders: Yes (stent (2006)) CVA: No COPD: No CHF: No Dementia: No Diabetes: Yes GI Disorders: Yes (reflux) Disorders: No HTN: Yes Hypercholesterolemia: Yes Liver Disease: No Seizures: No Thyroid Disease: Yes (nodules) - Surgical History Abdominal Surgery: No Appendectomy: No Cardiac Surgery: Yes (stent 2006) Cholecystectomy: No Lung Surgery: No Neurologic Surgery: No Orthopedic Surgery: No - Suicide/Smoking/Psychosocial Hx Smoking History: Former smoker Have you smoked in the past 12 months: No If you are a former smoker, when did you quit?: 30 YEARS AGO Hx Alcohol Use: No Drug/Substance Use Hx: No Substance Use Type: None Hx Substance Use Treatment: No <Lavon Prado I - Last Filed: 03/28/17 23:02> - Past Medical History Allergies/Adverse Reactions: Allergies Allergy/AdvReac Type Severity Reaction Status Date / Time Penicillins Allergy Intermediate Hives Verified 11/20/16 13:15 ibuprofen [From Advil] Allergy "heart Verified 11/20/16 13:15 attack like symptoms Home Medications: Ambulatory Orders Aspirin 81 mg PO DAILY 08/08/13 Candesartan Cilexetil [Atacand] 4 mg PO DAILY 08/08/13 Ferrous Sulfate 325 mg PO DAILY 08/08/13 Fluticasone/Salmeterol [Advair Hfa 115-21 Mcg Inhaler] 1 inh PO BID 08/08/13 Metoprolol Succinate [Toprol XL -] 50 mg PO DAILY 08/08/13 Ranitidine [Zantac -] 150 mg PO BID 08/08/13 Albuterol 0.083% Nebulizer Aaliyah [Ventolin 0.083% Nebulizer Soln -] 1 amp NEB QID PRN 11/20/16 Albuterol Sulfate [Proair Respiclick] 1 inh IH DAILY PRN 11/20/16 Ascorbate Calcium [Vitamin C] 500 mg PO DAILY 11/20/16 Atorvastatin Ca [Lipitor] 20 mg PO HS 11/20/16 Furosemide [Lasix] 20 mg PO Q2D 11/20/16 Iron Ps Complex/B12/Folic Acid [Poly-Iron 150 Forte Capsule] 1 cap PO DAILY Potassium Chloride 10 meq PO Q2D 11/20/16 Roflumilast [Daliresp] 500 mg PO DAILY 11/20/16 Vitamin B-12 1,000 units PO DAILY 11/20/16 Vitamin D3 1,000 units PO DAILY 11/20/16 Nitroglycerin Sublingual [Nitrostat -] 0.4 mg SL ASDIR PRN #30 tab 11/22/16 Ranolazine [Ranexa] 500 mg PO Q12H #60 tab.er.12h 11/22/16 Review of Systems - Review of Systems Comments:: 03/28/17 21:52 see HPI <Cherrie Ghosh - Last Filed: 03/28/17 21:54> *Physical Exam - Vital Signs Last Vital Signs Temp Pulse Resp BP Pulse Ox 98.9 F 73 14 129/60 98 03/28/17 21:37 03/28/17 21:37 03/28/17 21:37 03/28/17 21:37 03/28/17 21:37 - Physical Exam Comments: 03/28/17 21:52 see HPI <Cherrie Ghosh - Last Filed: 03/28/17 21:54> ED Treatment Course - LABORATORY CBC & Chemistry Diagram: 03/28/17 21:52 03/28/17 21:52 <Lavon Prado I - Last Filed: 03/28/17 23:02> *DC/Admit/Observation/Transfer - Attestations Scribe Attestion: 03/28/17 21:52 Documentation prepared by Cherrie Ghosh, acting as medical assistant float for Lavon Prado MD. <Cherrie Ghosh - Last Filed: 03/28/17 21:54> - Discharge Dispostion Admit: Yes <Lavon Prado I - Last Filed: 03/28/17 23:02> Diagnosis at time of Disposition: Cellulitis Qualifiers: Site of cellulitis: other site Qualified Code(s): L03.818 - Cellulitis of other sites - Discharge Dispostion Condition at time of disposition: Good - Referrals Referrals: Juan José Hardin MD [Primary Care Provider] - - Patient Instructions - Post Discharge Activity
[2017-03-28] MEDS ORDERED: ERTAPENEM SODIUM 1 GM/50 ML PRE-DOCKED IVPB ONE (21:48)
[2017-03-28] MEDS ORDERED: ERTAPENEM SODIUM 1 GM VIAL ONE (22:18)
[2017-03-28 22:39] LABS: BASO % 0.5 % (0-2.0); EOS % 4.1 % (0-4.5); MCH 30.4 pg (25.7-33.7); MCHC 34.5 g/dl (32.0-36.0); MEAN CELL VOLUME 88.1 fl (80-96); MEAN PLT VOLUME 8.3 fl (7.5-11.1); NEUT % 61.6 % (42.8-82.8); PLATELET COUNT 205 K/MM3 (134-434); RDW 12.1 % (11.6-15.6); WHITE BLOOD COUNT 5.8 K/mm3 (4.0-10.8)
[2017-03-28 22:47] LABS: ALBUMIN 3.9 g/dl (3.5-5.0); ALK PHOS 47 U/L (32-92); ANION GAP 8 (8-16); CALCIUM 9.8 mg/dl (8.4-10.2); CO2 24 mmol/L (22-28); GLUCOSE,RANDOM 101 mg/dl (74-106); SGOT/AST 22 U/L (10-42); SGPT/ALT 17 U/L (10-40); TOT PROT 6.9 g/dl (6.4-8.3)
[2017-03-28] MEDS ORDERED: VANCOMYCIN 1 GRAM (PRE-DOCKED) 1,000 MG/250 ML BAG IVPB ONE (23:39)
[2017-03-28] MEDS ORDERED: VANCOMYCIN 1,000 MG VIAL (RESTRICTED TO ID ONLY) ONE (23:52)
[2017-03-29] MEDS ORDERED: ALBUTEROL SO4 0.083% IH SOL 2.5 MG/3 ML VIAL.NEB. NEB PRN (01:03)
--- NOTE | 2017-03-29 01:09 | HP ---
CHIEF COMPLAINT: infected burn PCP: Wilfred HISTORY OF PRESENT ILLNESS: This is a 81 year old female with a significant past medical history of DM who presented to the ED from urgent care with a burn to her right forearm. She states that she burned it a few days ago and today noticed increased redness. She presented to Urgent care who sent her here. They poly a line around the area of redness and induration at urgent care which the redness now extends beyond. ER course was notable for: (1) WBC 5.8 Recent Travel: pt denies PAST MEDICAL HISTORY: DM, HTN, CAD s/p 1 stent, HLD, asthma, colon CA, GERD PAST SURGICAL HISTORY: partial colectomy 2012, stent placement 2006, tonsillectomy as a child Social History: Smokin pack year history, quit age 50 Alcohol: pt denies Drugs: pt denies Family History: father age 57, lung [place] mother age 72, [place] brother with arthritis Allergies Penicillins Allergy (Intermediate, Verified 11/20/16 13:15) Hives ibuprofen [From Advil] Allergy (Verified 11/20/16 13:15) "heart attack like symptoms HOME MEDICATIONS: 3 Medication Instructions Recorded Aspirin 81 mg PO DAILY 08/08/13 Candesartan Cilexetil [Atacand] 4 mg PO DAILY 08/08/13 Ferrous Sulfate 325 mg PO DAILY 08/08/13 Fluticasone/Salmeterol [Advair Hfa 1 inh PO BID 08/08/13 115-21 Mcg Inhaler] Metoprolol Succinate [Toprol XL -] 50 mg PO DAILY 08/08/13 Ranitidine [Zantac -] 150 mg PO BID 08/08/13 Albuterol 0.083% Nebulizer Aaliyah 1 amp NEB QID PRN 11/20/16 [Ventolin 0.083% Nebulizer Soln -] Albuterol Sulfate [Proair 1 inh IH DAILY PRN 11/20/16 Respiclick] Ascorbate Calcium [Vitamin C] 500 mg PO DAILY 11/20/16 Atorvastatin Ca [Lipitor] 20 mg PO HS 11/20/16 Furosemide [Lasix] 20 mg PO Q2D 11/20/16 Iron Ps Complex/B12/Folic Acid 1 cap PO DAILY 11/20/16 [Poly-Iron 150 Forte Capsule] Potassium Chloride 10 meq PO Q2D 11/20/16 Roflumilast [Daliresp] 500 mg PO DAILY 11/20/16 Vitamin B-12 1,000 units PO DAILY 11/20/16 Vitamin D3 1,000 units PO DAILY 11/20/16 Nitroglycerin Sublingual 0.4 mg SL ASDIR PRN #30 tab 11/22/16 [Nitrostat -] Ranolazine [Ranexa] 500 mg PO Q12H #60 tab.er.12h 11/22/16 REVIEW OF SYSTEMS CONSTITUTIONAL: Absent: fever, chills, diaphoresis, generalized weakness, malaise, loss of appetite, weight change HEENT: Absent: rhinorrhea, nasal congestion, throat pain, throat swelling, difficulty swallowing, mouth swelling, ear pain, eye pain, visual changes CARDIOVASCULAR: Absent: chest pain, syncope, palpitations, irregular heart rate, lightheadedness , peripheral edema RESPIRATORY: Absent: cough, shortness of breath, dyspnea with exertion, orthopnea, wheezing, stridor, hemoptysis GASTROINTESTINAL: Absent: abdominal pain, abdominal distension, nausea, vomiting, diarrhea, constipation, melena, hematochezia GENITOURINARY: Absent: dysuria, frequency, urgency, hesitancy, hematuria, flank pain, genital pain MUSCULOSKELETAL: Absent: myalgia, arthralgia, joint swelling, back pain, neck pain SKIN: Present: burn to right arm with surrounding erythema Absent: rash, itching, pallor HEMATOLOGIC/IMMUNOLOGIC: Absent: easy bleeding, easy bruising, lymphadenopathy, frequent infections ENDOCRINE: Absent: unexplained weight gain, unexplained weight loss, heat intolerance, cold intolerance NEUROLOGIC: Absent: headache, focal weakness or paresthesias, dizziness, unsteady gait, seizure, mental status changes, bladder or bowel incontinence PSYCHIATRIC: Absent: anxiety, depression, suicidal or homicidal ideation, hallucinations. PHYSICAL EXAMINATION Vital Signs - 24 hr 3 03/28/17 21:37 Temperature 98.9 F Pulse Rate 73 Respiratory 14 Rate Blood Pressure 129/60 O2 Sat by Pulse 98 Oximetry (%) GENERAL: Awake, alert, and fully oriented, in no acute distress. HEAD: Normal with no signs of trauma. EYES: Pupils equal, round and reactive to light, extraocular movements intact, sclera anicteric, conjunctiva clear. No lid lag. EARS, NOSE, THROAT: Ears normal, nares patent, oropharynx clear without exudates. Moist mucous membranes. NECK: Normal range of motion, supple without lymphadenopathy, JVD, or masses. LUNGS: Breath sounds equal, clear to auscultation bilaterally. No wheezes, and no crackles. No accessory muscle use. HEART: Regular rate and rhythm, normal S1 and S2 without murmur, rub or gallop. ABDOMEN: Soft, nontender, not distended, normoactive bowel sounds, no guarding, no rebound, no masses. No hepatomegaly or splenomegaly. MUSCULOSKELETAL: Normal range of motion at all joints. No bony deformities or tenderness. No CVA tenderness. UPPER EXTREMITIES: 2+ pulses, warm, well-perfused. No cyanosis. No clubbing. No peripheral edema. LOWER EXTREMITIES: 2+ pulses, warm, well-perfused. No calf tenderness. No peripheral edema. NEUROLOGICAL: Cranial nerves II-XII intact. Normal speech. Normal gait. PSYCHIATRIC: Cooperative. Good eye contact. Appropriate mood and affect. SKIN: Warm, dry, normal turgor, no rashes or lesions noted, normal capillary refill. Burn to right arm, open blister, 3.7cm x 1.8cm, wound bed with some slough, DC serosanguinous, no purulence noted. no foul odor. surrounding skin with erythema and induration. Laboratory Results - last 24 hr 3 03/28/17 03/28/17 21:52 21:52 WBC 5.8 RBC 3.99 Hgb 12.1 Hct 35.2 MCV 88.1 MCH 30.4 MCHC 34.5 RDW 12.1 Plt Count 205 MPV 8.3 Neutrophils % 61.6 Lymphocytes % 24.4 Monocytes % 9.4 Eosinophils % 4.1 Basophils % 0.5 Sodium 137 Potassium 4.2 Chloride 105 Carbon Dioxide 24 Anion Gap 8 BUN 25 H Creatinine 1.0 Creat Clearance w eGFR 53.48 Random Glucose 101 Calcium 9.8 Total Bilirubin 1.0 AST 22 ALT 17 Alkaline Phosphatase 47 Total Protein 6.9 Albumin 3.9 ASSESSMENT/PLAN: 81yF with PMH DM, HTN, CAD s/p 1 stent, HLD, asthma, colon CA, GERD presented to the ED with an infected burn. Cellulitis - given invanz in ED, will add vanco for MRSA coverage - ID consult - bacitracin and DPD DM - cont diet control HTN/CAD/HLD - cont home meds COPD/asthma - cont home meds, asymptomatic at present GERD - cont home ranitidine DVT PPX - chemoprophylaxis deferred, expected LOS <48h FEN - tolerating po - bmp in am - low sodium diet Dispo: Pt currently requires further observation for management of her emergent condition. Visit type - Emergency Visit Emergency Visit: Yes ED Registration Date: 03/28/17 Care time: The patient presented to the Emergency Department on the above date and was hospitalized for further evaluation of their emergent condition. - New Patient This patient is new to me today: Yes Date on this admission: 03/29/17 - Critical Care Critical Care patient: No
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
[2017-03-29 09:00] LABS: BASO % 0.6 % (0-2.0); MCH 29.6 pg (25.7-33.7); MCHC 33.6 g/dl (32.0-36.0); MEAN CELL VOLUME 88.3 fl (80-96); MEAN PLT VOLUME 7.8 fl (7.5-11.1); NEUT % 57.9 % (42.8-82.8); PLATELET COUNT 176 K/MM3 (134-434); RDW 12.4 % (11.6-15.6); WHITE BLOOD COUNT 3.8 K/mm3 (4.0-10.8)
[2017-03-29 09:09] LABS: ANION GAP 6 (8-16); CALCIUM 9.1 mg/dl (8.4-10.2); CO2 25 mmol/L (22-28); CREATININE 0.8 mg/dl (0.6-1.3); GLUCOSE,RANDOM 144 mg/dl (74-106); MAGNESIUM 1.8 mg/dL (1.8-2.4); PHOSPHOROUS 3.9 mg/dl (2.5-4.6)
[2017-03-29] MEDS: ROFLUMILAST 500 MCG TABLET PO SCH (09:56)
[2017-03-29] MEDS: ASPIRIN 81 MG CHEWABLE TABLETS PO SCH (09:56)
[2017-03-29] MEDS: VALSARTAN 40 MG TABLET (FP) PO SCH (09:56)
[2017-03-29] MEDS: BACITRACIN 0.9 GM PACKET TP SCH (09:56)
[2017-03-29] MEDS: FERROUS SO4 325 MG TABLET (FP) PO SCH (09:56)
[2017-03-29] MEDS: CHOLECALCIFEROL (VITAMIN D3) 1,000 UNIT TABLET (FP) PO SCH (09:57)
[2017-03-29] MEDS: ASCORBIC ACID 500 MG TABLET (FP) PO SCH (09:57)
[2017-03-29] MEDS: METOPROLOL SUCCINATE 50 MG TAB.SR.24H (FP) PO SCH (09:57)
[2017-03-29] MEDS: BUDESONIDE/FORMETEROL FUMARATE 80/4.5 mcg INHALER IH SCH ×2 (09:57→21:19)
[2017-03-29] MEDS: RANITIDINE HCL 150 MG TABLET (FP) PO SCH ×2 (09:57→21:19)
[2017-03-29] MEDS: CYANOCOBALAMIN 1,000 MCG TABLET (FP) PO SCH (10:00)
[2017-03-29] MEDS ORDERED: POTASSIUM CHLORIDE TABS 10 MEQ TABLET.ER (FP) PO SCH (10:00)
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
[2017-03-29] MEDS ORDERED: FUROSEMIDE 20 MG TABLET (FP) PO SCH (11:45)
[2017-03-29] MEDS: LEVOFLOXACIN 500 MG IVPB 500 MG/100 ML BAG IVPB SCH (12:14)
[2017-03-29] MEDS: RANOLAZINE E.R. 500 MG TABLET (FP) PO SCH ×2 (12:17→21:19)
[2017-03-29] MEDS: VANCOMYCIN 1 GRAM (PRE-DOCKED) 1,000 MG/250 ML BAG IVPB SCH ×2 (12:19→23:52)
[2017-03-29 13:24] VITALS: BMI 29.5
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
[2017-03-29] MEDS: FE POLYSAC/CYANOCOBAL/FA COMBO CAPSULE PO SCH (13:45)
[2017-03-29] MEDS ORDERED: PT OWN MED DRAWER 7, Y5N ONE (21:04)
[2017-03-29] MEDS ORDERED: ATORVASTATIN CA 20 MG TABLET (FP) PO SCH (22:00)
[2017-03-30] MEDS ORDERED: ACETAMINOPHEN 325 MG TABLET (FP) ONE (08:18)
[2017-03-30 08:24] LABS: BASO % 0.5 % (0-2.0); EOS % 4.6 % (0-4.5); MCH 30.7 pg (25.7-33.7); MCHC 34.5 g/dl (32.0-36.0); NEUT % 62.3 % (42.8-82.8); PLATELET COUNT 223 K/MM3 (134-434); RDW 12.4 % (11.6-15.6); WHITE BLOOD COUNT 5.5 K/mm3 (4.0-10.8)
[2017-03-30 08:31] LABS: ANION GAP 6 (8-16); CALCIUM 9.8 mg/dl (8.4-10.2); CO2 28 mmol/L (22-28); GLUCOSE,RANDOM 133 mg/dl (74-106)
--- NOTE | 2017-03-30 08:59 | EKG ---
Test Reason : Blood Pressure : / mmHG Vent. Rate : 064 BPM Atrial Rate : 064 BPM P-R Int : 164 ms QRS Dur : 102 ms QT Int : 402 ms P-R-T Axes : 067 048 065 degrees QTc Int : 414 ms NORMAL SINUS RHYTHM NORMAL ECG WHEN COMPARED WITH ECG OF 20-NOV-2016 13:09, NO SIGNIFICANT CHANGE WAS FOUND Confirmed by STEVE CAMPUZANO MD ([id number]) on 03/30/2017 8:58:48 AM Referred By: Davian Grewal Confirmed By:STEVE CAMPUZANO MD
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
[2017-03-30] MEDS: CYANOCOBALAMIN 1,000 MCG TABLET (FP) PO SCH (09:53)
[2017-03-30] MEDS: FERROUS SO4 325 MG TABLET (FP) PO SCH (09:54)
[2017-03-30] MEDS: ASCORBIC ACID 500 MG TABLET (FP) PO SCH (09:54)
[2017-03-30] MEDS: VALSARTAN 40 MG TABLET (FP) PO SCH (09:54)
[2017-03-30] MEDS: ASPIRIN 81 MG CHEWABLE TABLETS PO SCH (09:54)
[2017-03-30] MEDS: RANITIDINE HCL 150 MG TABLET (FP) PO SCH (09:54)
[2017-03-30] MEDS: CHOLECALCIFEROL (VITAMIN D3) 1,000 UNIT TABLET (FP) PO SCH (09:55)
[2017-03-30] MEDS: LEVOFLOXACIN 500 MG IVPB 500 MG/100 ML BAG IVPB SCH (09:55)
[2017-03-30] MEDS: ROFLUMILAST 500 MCG TABLET PO SCH (09:55)
[2017-03-30] MEDS: METOPROLOL SUCCINATE 50 MG TAB.SR.24H (FP) PO SCH (09:55)
[2017-03-30] MEDS ORDERED: PT OWN MED DRAWER 7, Y5N ONE (09:58)
[2017-03-30] MEDS: FE POLYSAC/CYANOCOBAL/FA COMBO CAPSULE PO SCH (10:03)
[2017-03-30] MEDS: BUDESONIDE/FORMETEROL FUMARATE 80/4.5 mcg INHALER IH SCH (10:04)
[2017-03-30] MEDS: BACITRACIN 0.9 GM PACKET TP SCH (11:11)
[2017-03-30] MEDS: RANOLAZINE E.R. 500 MG TABLET (FP) PO SCH (11:11)
[2017-03-30] MEDS: VANCOMYCIN 1 GRAM (PRE-DOCKED) 1,000 MG/250 ML BAG IVPB SCH (11:12)
[2017-03-30 11:15] LABS: EOS # 0.3 #; LYMPH # 1.3 # (8-40); MONO # 0.5 #; NEUT # 3.4 # (42.8-82.8)
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
[2017-03-30 13:57] VITALS: BP 131/63; PULSE 70; TEMP 97.6
== END 2017-03-30 15:34 | disposition home or self-care (01) ==
LOC: FER 21:34 → FM/S 03-29 01:03 → UNDOADMOB 03-29 10:22
PROVIDERS: ADMIT Internal Medicine; ATTEND Nurse Practitioner Family
PROC: 3E03329 Introduction of Other Anti-infective into Peripheral Vein, Percutaneous Approach (ICD-10-PCS; principal; 2017-03-29)
PROC: 3E0F7GC Introduction of Other Therapeutic Substance into Respiratory Tract, Via Natural or Artificial Opening (ICD-10-PCS; 2017-03-29)
DX: L03.113 Cellulitis of right upper limb (principal); I10 Essential (primary) hypertension; E78.5 Hyperlipidemia, unspecified; E11.9 Type 2 diabetes mellitus without complications; J45.909 Unspecified asthma, uncomplicated; J44.9 Chronic obstructive pulmonary disease, unspecified; I25.10 Atherosclerotic heart disease of native coronary artery without angina pectoris; Z95.5 Presence of coronary angioplasty implant and graft; Z85.038 Personal history of other malignant neoplasm of large intestine; Z90.49 Acquired absence of other specified parts of digestive tract; K21.9 Gastro-esophageal reflux disease without esophagitis; Z88.0 Allergy status to penicillin; Z79.82 Long term (current) use of aspirin; Z88.6 Allergy status to analgesic agent
CPT/HCPCS: 36415; 71010-TC; 80048; 80053; 83735; 84100; 85025; 87040; 87070; 87205; 93005; 94640; 96374; 96375; 99284-25; G0378

== ENCOUNTER 2017-07-20 13:00 | Inpatient (IN) | payer OTHER ==
[2017-07-20] MEDS ORDERED: ASPIRIN 325 MG TABLET PO ONE (13:55)
--- NOTE | 2017-07-20 14:04 | PDOC ---
History of Present Illness - General History Source: Patient Exam Limitations: No Limitations - History of Present Illness Initial Comments: 07/20/17 15:06 The patient is a 82 year old female, with a significant past medical history of hypertension, hyperlipidemia, diabetes, CAD s/p stent, CHF, COPD, asthma, GERD, colon cancer (s/p colectomy), who presents to the emergency department with chest pain and shortness of breath for 2 days. Patient also states she has been feeling increasingly tired over the past week. However, yesterday, patient reports she developed chest discomfort while walking, which she describes as a heaviness. Patient reports her pain lasted about 15 minutes and resolved when she rested. She reports associated shortness of breath, exacerbated with exertion, but denies any diaphoresis, palpitations, lower extremity edema, or lightheadedness. Patient states she took her inhaler, with minimal relief of symptoms. This morning, patient reports her chest pain returned at rest. Patient reports she has had this type of chest pain in the past when her stent was placed, and states her symptoms are different from her asthma exacerbation episodes. She denies any abdominal pain, nausea, vomiting, diarrhea, or constipation. She denies any fever or chills. She denies any recent travel or sick contacts. Allergies: Penicillins, Ibuprofen Past Surgical History: Cardiac stent, colectomy Social History: Non smoker. No ETOH or recreational drug use. PCP: Dr. Haridn Fire Manager: Dr. Li <Perla Navarro - Last Filed: 07/20/17 16:07> <Tacho Ram - Last Filed: 07/20/17 16:22> - General Chief Complaint: Shortness of Breath Stated Complaint: CHEST PRESSURE, SOB Time Seen by Provider: 07/20/17 13:33 Past History <Perla Navarro - Last Filed: 07/20/17 16:07> - Past Medical History Anemia: No Asthma: Yes Cancer: Yes Cardiac Disorders: Yes (stent (2006)) CVA: No COPD: No CHF: No Dementia: No Diabetes: Yes GI Disorders: Yes (reflux) Disorders: No HTN: Yes Hypercholesterolemia: Yes Liver Disease: No Seizures: No Thyroid Disease: Yes (nodules) - Surgical History Abdominal Surgery: No Appendectomy: No Cardiac Surgery: Yes (stent 2006) Cholecystectomy: No Lung Surgery: No Neurologic Surgery: No Orthopedic Surgery: No - Immunization History Immunization Up to Date: No - Suicide/Smoking/Psychosocial Hx Smoking History: Never smoked Have you smoked in the past 12 months: No Number of Cigarettes Smoked Daily: 0 If you are a former smoker, when did you quit?: 30 YEARS AGO Information on smoking cessation initiated: No Hx Alcohol Use: No Drug/Substance Use Hx: No Substance Use Type: None Hx Substance Use Treatment: No <Tacho Ram - Last Filed: 07/20/17 16:22> - Past Medical History Allergies/Adverse Reactions: Allergies Allergy/AdvReac Type Severity Reaction Status Date / Time Penicillins Allergy Intermediate Hives Verified 07/20/17 13:06 ibuprofen [From Advil] Allergy "heart Verified 07/20/17 13:06 attack like symptoms Review of Systems - Review of Systems Able to Perform ROS?: Yes Comments:: 07/20/17 15:06 GENERAL/CONSTITUTIONAL: +Fatigue. No fever or chills. No weakness. HEAD, EYES, EARS, NOSE AND THROAT: No change in vision. No ear pain or discharge. No sore throat. GASTROINTESTINAL: No nausea, vomiting, diarrhea or constipation. GENITOURINARY: No dysuria, frequency, or change in urination. CARDIOVASCULAR: +Chest pain, shortness of breath. No diaphoresis, palpitations, or lightheadedness. RESPIRATORY: No cough, wheezing, or hemoptysis. MUSCULOSKELETAL: No joint or muscle swelling or pain. No neck or back pain. SKIN: No rash NEUROLOGIC: No headache, vertigo, loss of consciousness, or change in strength/ sensation. ENDOCRINE: No increased thirst. No abnormal weight change. HEMATOLOGIC/LYMPHATIC: No anemia, easy bleeding, or history of blood clots. ALLERGIC/IMMUNOLOGIC: No hives or skin allergy. <Perla Navarro - Last Filed: 07/20/17 16:07> *Physical Exam - Vital Signs Last Vital Signs Temp Pulse Resp BP Pulse Ox 97.9 F 79 18 138/87 97 07/20/17 13:04 07/20/17 13:04 07/20/17 13:04 07/20/17 13:04 07/20/17 13:04 - Physical Exam Comments: 07/20/17 15:06 GENERAL: Awake, alert, and fully oriented, in no acute distress HEAD: No signs of trauma EYES: PERRLA, EOMI, sclera anicteric, conjunctiva clear ENT: Auricles normal inspection, hearing grossly normal, nares patent, oropharynx clear without exudates. Moist mucosa NECK: Normal ROM, supple, no lymphadenopathy, JVD, or masses LUNGS: Breath sounds equal, clear to auscultation bilaterally. No wheezes, and no crackles HEART: Regular rate and rhythm, normal S1 and S2, no murmurs, rubs or gallops ABDOMEN: Soft, nontender, normoactive bowel sounds. No guarding, no rebound. No masses EXTREMITIES: Normal range of motion, no edema. No clubbing or cyanosis. No cords, erythema, or tenderness BACK: No midline spinal tenderness in cervical/thoracic/lumbar region NEUROLOGICAL: Normal speech, cranial nerves intact, negative pronator drift, 5/ 5 strength in all 4 extremities, normal sensation to light touch in all 4 extremities, normal cerebellar exam, normal gait, normal reflexes and tone SKIN: Warm, Dry, normal turgor, no rashes or lesions noted. <Perla Navarro - Last Filed: 07/20/17 16:07> - Vital Signs Last Vital Signs Temp Pulse Resp BP Pulse Ox 97.9 F 79 18 138/87 97 07/20/17 13:04 07/20/17 13:04 07/20/17 13:04 07/20/17 13:04 07/20/17 13:04 <Tacho Ram - Last Filed: 07/20/17 16:22> Heart Score/ECG Review - History History: Highly suspicious - Electrocardiogram EKG: Non specific repolarization disturbance - Age Age: >/= 65 - Risk Factors Based on the list above the patient has:: >/=3 risk factors or Hx atherosclerotic disease - Troponin Troponin: </= normal limit - Score Heart Score - Total: 7 #1 07/20/17 16:20 Twelve-lead EKG was performed and reviewed by me. Normal sinus rhythm, rate 70 to. Normal axis. No ST elevations. Compared to EKG from 03/29/2017, no significant change. <Tacho Ram - Last Filed: 07/20/17 16:22> ED Treatment Course - LABORATORY CBC & Chemistry Diagram: 07/20/17 14:27 07/20/17 14:27 - Medications Given in the ED: ED Medications Discontinued Medications Generic Name Dose Route Start Last Admin Trade Name Maria Elena PRN Reason Stop Dose Admin Aspirin 325 mg 07/20/17 13:55 07/20/17 14:42 Asa - PO 07/20/17 13:56 325 mg ONCE ONE Administration <Perla Navarro - Last Filed: 07/20/17 16:07> - LABORATORY CBC & Chemistry Diagram: 07/20/17 14:27 07/20/17 14:27 - RADIOLOGY Radiology Studies Ordered: Category Date Time Status CHEST X-RAY PORTABLE* [RAD] Stat Radiology 07/20/17 13:54 Ordered <Tacho Ram - Last Filed: 07/20/17 16:22> Medical Decision Making - Medical Decision Making 07/20/17 16:08 First call placed to Dr. Li at 16:08. Awaiting call back. <Perla Navarro - Last Filed: 07/20/17 16:07> - Medical Decision Making 07/20/17 16:17 82-year-old female with multiple medical problems including coronary artery disease status post stent resents emergency Department with chest tightness and shortness of breath at rest and with exertion concerning for unstable angina. EKG stable compared to previous EKG from April. Initial set of labs unremarkable with negative troponin and normal BNP. Chest x-ray is clear. Given high risk chest pain, patient given aspirin and admitted to Dr. Cutler for cardiac workup. Case discussed with PETERSON Lr. Case discussed in detail with admitting physician including history, physical exam and ancillary studies. Admitting physician has assumed care for the patient, will follow all pending diagnostics and will complete the evaluation and treatment. <Tacho Ram - Last Filed: 07/20/17 16:22> *DC/Admit/Observation/Transfer - Attestations Scribe Attestion: 07/20/17 15:07 Documentation prepared by Perla Navarro, acting as medical surgical tech for Tacho Ram MD. <Perla Navarro - Last Filed: 07/20/17 16:07> - Discharge Dispostion Admit: Yes - Attestations Physician Attestion: 07/20/17 16:22 I, Dr. Tacho Ram MD, attest that this document has been prepared under my direction and personally reviewed by me in its entirety. I further attest, that it accurately reflects all work, treatment, procedures and medical decision -making performed by me. <Tacho Ram - Last Filed: 07/20/17 16:22> Diagnosis at time of Disposition: Chest pain - Discharge Dispostion Condition at time of disposition: Stable - Referrals Referrals: Juan José aHrdin MD [Primary Care Provider] - - Patient Instructions - Post Discharge Activity
[2017-07-20] MEDS ORDERED: ASPIRIN 325 MG TABLET ONE (14:37)
[2017-07-20 15:03] LABS: BASO % 0.7 % (0-2.0); EOS % 4.5 % (0-4.5); HEMATOCRIT 37.7 % (32.4-45.2); HEMOGLOBIN 12.8 GM/dL (10.7-15.3); LYMPH % 17.8 % (8-40); MCHC 33.9 g/dl (32.0-36.0); MEAN CELL VOLUME 88.4 fl (80-96); MEAN PLT VOLUME 7.8 fl (7.5-11.1); MONO % 6.9 % (3.8-10.2); NEUT % 70.1 % (42.8-82.8); PLATELET COUNT 217 K/MM3 (134-434); RBC 4.27 M/mm3 (3.60-5.2); RDW 13.4 % (11.6-15.6); WHITE BLOOD COUNT 6.8 K/mm3 (4.0-10.0)
[2017-07-20 15:13] LABS: ALBUMIN 3.6 g/dl (3.4-5.0); ANION GAP 7 (8-16); BLOOD UREA NITROGEN 27 mg/dL (7-18); CALCIUM 9.3 mg/dL (8.5-10.1); CHLORIDE 106 mmol/L (98-107); CO2 26 mmol/L (21-32); GLUCOSE,RANDOM 109 mg/dL (74-106); MAGNESIUM 1.8 mg/dL (1.8-2.4); POTASSIUM 4.1 mmol/L (3.5-5.1); SGOT/AST 15 U/L (15-37); SGPT/ALT 21 U/L (12-78); SODIUM 139 mmol/L (136-145)
[2017-07-20 15:17] LABS: ALK PHOS 58 U/L (45-117); BILIRUBIN,TOTAL 0.5 mg/dL (0.2-1.0); TOT PROT 7.1 g/dl (6.4-8.2)
[2017-07-20 15:19] LABS: LIPASE 212 U/L (73-393)
[2017-07-20 15:33] LABS: INR 0.99 (0.82-1.09); PROTHROMBIN TIME (PATIENT) 11.2 SEC (9.98-11.88)
[2017-07-20 15:35] LABS: ACTIVATED PTT 30.6 SECONDS (26.9-34.4)
[2017-07-20] MEDS ORDERED: ISOSORBIDE MONONITRATE 30 MG TAB.SR.24H (FP) PO ONE (16:30)
[2017-07-20 16:44] LABS: URINE APPEARANCE CLEAR; URINE BILIRUBIN NEGATIVE (<2.0 mg/dL); URINE BLOOD NEGATIVE (NEGATIVE); URINE COLOR LTYELLOW; URINE GLUCOSE (UA) NEGATIVE (NEGATIVE); URINE KETONE NEGATIVE (NEGATIVE); URINE NITRITE NEGATIVE (NEGATIVE); URINE PROTEIN NEGATIVE (NEGATIVE); URINE UROBILINOGEN NEGATIVE mg/dL (0.2-1.0)
[2017-07-20] MEDS ORDERED: NITROGLYCERIN 25MG/D5W 250ML 25 MG/250 ML ML IVPB SCH (16:45)
[2017-07-20] MEDS ORDERED: ISOSORBIDE MONONITRATE 60 MG TAB.SR.24H (FP) PO ONE (16:47)
[2017-07-20] MEDS ORDERED: HEPARIN NA (PORCINE) 5,000 UNITS/ML 1ML VIAL IVPUSH PRN ×2 (16:47)
[2017-07-20 16:48] LABS: URINE LEUK ESTERASE 1+ (NEGATIVE)
--- NOTE | 2017-07-20 16:48 | HP ---
Admitting History and Physical - Primary Care Physician PCP: Juan José Hardin - Admission Chief Complaint: sob History of Present Illness: is a pleasant 82 year old female with pmh of HTN, HLD, NIDDM, CAD s /p stent, CHF, CKD, COPD, asthma, GERD, colon cancer (s/p colectomy) who presents today with sob and chest heaviness which started yesterday. She reports the chest discomfort lasted 15 minutes with exertion and resolved with rest. She reports initially the symptoms were on exertion but now occurs today with rest as well. She also reports chest burning which started today. She feels this is similar to her previous time when she stent placement. Pt denies any current chest pain, sob, n/v/d, diaphoresis, dysuria, fever/chills, unilateral weakness, abd pain, or other symptoms. 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 Tolentino History Source: Patient Limitations to Obtaining History: No Limitations - Past Medical History Cardiovascular: Yes: CAD, HTN, Hyperlipdemia Pulmonary: Yes: COPD Gastrointestinal: Yes: Cancer (colon), Constipation Renal/: Yes: Renal Inusuff Endocrine: Yes: Diabetes Mellitus, Hypothyroidism - Past Surgical History Past Surgical History: Yes: Colectomy, Tonsillectomy - Smoking History Smoking history: Never smoked Have you smoked in the past 12 months: No Aproximately how many cigarettes per day: 0 If you are a former smoker, when did you quit?: 30 YEARS AGO - Alcohol/Substance Use Hx Alcohol Use: No History of Substance Use: reports: None - Social History ADL: Independent History of Recent Travel: No Home Medications - Allergies Allergies/Adverse Reactions: Allergies Allergy/AdvReac Type Severity Reaction Status Date / Time Penicillins Allergy Intermediate Hives Verified 07/20/17 13:06 ibuprofen [From Advil] Allergy "heart Verified 07/20/17 13:06 attack like symptoms shellfish derived Allergy Verified 07/20/17 17:53 - Home Medications Home Medications: Ambulatory Orders Albuterol Sulfate [Proair Hfa] 2 puff IH Q4HWA PRN 07/20/17 Ascorbic Acid [Vitamin C] 500 mg PO DAILY 07/20/17 Aspirin [Ecotrin] 81 mg PO DAILY 07/20/17 Atorvastatin Ca [Lipitor] 20 mg PO HS 07/20/17 Candesartan Cilexetil [Atacand (Nf) -] 4 mg PO DAILY 07/20/17 Cholecalciferol (Vitamin D3) [Vitamin D3] 2,000 unit PO DAILY 07/20/17 Cyanocobalamin (Vitamin B-12) [Vitamin B-12] 1,000 mcg PO DAILY 07/20/17 Fluticasone/Vilanterol [Breo Ellipta 200-25 Mcg INH] 1 each IH DAILY 07/20/17 Folic Acid 1 mg PO DAILY 07/20/17 Furosemide [Lasix -] 20 mg PO DAILY 07/20/17 Iron Polysaccharide Complex [Poly-Iron] 150 mg PO DAILY 07/20/17 Metoprolol Succinate [Toprol Xl -] 50 mg PO DAILY 07/20/17 Potassium Chloride 10 meq PO ASDIR 07/20/17 Ranitidine [Zantac -] 150 mg PO BID 07/20/17 Ranolazine [Ranexa -] 500 mg PO BID 07/20/17 Roflumilast [Daliresp] 500 mcg PO DAILY 07/20/17 Family Disease History - Family Disease History Family Disease History: Heart Disease: Mother, [place]: Father Review of Systems Findings/Remarks: as per hpi Physical Examination Vital Signs: Vital Signs Temperature 97.9 F 07/20/17 13:04 Pulse Rate 79 07/20/17 13:04 Respiratory Rate 18 07/20/17 13:04 Blood Pressure 138/87 07/20/17 13:04 O2 Sat by Pulse Oximetry (%) 97 07/20/17 13:04 Constitutional: Yes: Well Nourished, No Distress Cardiovascular: Yes: WNL, Regular Rate and Rhythm Respiratory: Yes: WNL, Regular, CTA Bilaterally. No: Accessory Muscle Use, SOB , Tachypnea, Wheezes Gastrointestinal: Yes: WNL, Normal Bowel Sounds, Soft. No: Distention, Tenderness Renal/: Yes: WNL Edema: No Neurological: Yes: WNL, Alert, Oriented Psychiatric: Yes: WNL, Alert, Oriented Labs: CBC, BMP 07/20/17 14:27 07/20/17 14:27 Problem List - Problems (1) Unstable angina Assessment/Plan: chest heaviness with exertion and rest currently denies at the moment tropx3 ekg without acute changes jeff score 4 [id number] once nitro drip/heparin drip per tele cardiology consulted Code(s): I20.0 - UNSTABLE ANGINA (2) CAD (coronary artery disease) Assessment/Plan: s/p pci stent as above Code(s): I25.10 - ATHSCL HEART DISEASE OF [place] CORONARY ARTERY W/O ANG PCTRS Qualifiers: [place] vs. transplanted heart: [place] heart Associated angina: with unstable angina (3) Diabetes Assessment/Plan: chronic, off meds HgA1c ordered will monitor Code(s): E11.9 - TYPE 2 DIABETES MELLITUS WITHOUT COMPLICATIONS Qualifiers: Diabetes mellitus type: type 2 Diabetes mellitus assisted insulin use: without assisted use Diabetes mellitus complication status: with kidney complications Diabetes mellitus complication detail: with chronic kidney disease Chronic kidney disease stage: stage 2 (mild) Qualified Code(s): E11.22 - Type 2 diabetes mellitus with diabetic chronic kidney disease; N18.2 - Chronic kidney disease, stage 2 (mild); N18.2 - Chronic kidney disease, stage 2 (mild) (4) HLD (hyperlipidemia) Assessment/Plan: chronic lipid panel ordered continue statin Code(s): E78.5 - HYPERLIPIDEMIA, UNSPECIFIED (5) HTN (hypertension) Assessment/Plan: controlled continue metoprolol Code(s): I10 - ESSENTIAL (PRIMARY) HYPERTENSION Qualifiers: Hypertension type: essential hypertension Qualified Code(s): I10 - Essential (primary) hypertension (6) Asthma Assessment/Plan: chronic, stable Code(s): J45.909 - UNSPECIFIED ASTHMA, UNCOMPLICATED Qualifiers: Asthma severity: mild Asthma persistence: intermittent Asthma complication type: uncomplicated Qualified Code(s): J45.20 - Mild intermittent asthma, uncomplicated (7) History of colon cancer Assessment/Plan: s/p colon resection Code(s): Z85.038 - PERSONAL HISTORY OF MALIGNANT NEOPLASM OF LARGE INTESTINE
[2017-07-20] MEDS ORDERED: HEPARIN INFUSION - 25,000 UNITS/500 ML INFUS.BAG IVPB ONE (17:18)
[2017-07-20] MEDS ORDERED: NITROGLYCERIN 25MG/D5W 250ML 25 MG/250 ML ML IVPB ONE (17:18)
[2017-07-20 17:28] LABS: EPI CELLS RARE /HPF (FEW); URINE BACTERIA RARE /hpf (NONE SEEN); URINE MUCUS RARE
[2017-07-20] MEDS: HEPARIN SOD,PORK IN 0.45% NACL 25,000 UNITS/500 ML INFUS.BAG IVPB SCH (17:35)
[2017-07-20] MEDS ORDERED: ALBUTEROL SO4 18 GM HFA INHALER IH PRN (18:15)
[2017-07-20] MEDS ORDERED: ATORVASTATIN CA 80 MG TABLET (FP) PO ONE (19:17)
[2017-07-20] MEDS ORDERED: ATORVASTATIN CA 80 MG TABLET (FP) ONE (19:26)
--- NOTE | 2017-07-20 20:25 | CONS ---
CARDIOLOGY CONSULTATION DATE OF CONSULTATION: 07/20/2017 REQUESTING PHYSICIAN: CHIEF COMPLAINT: 1. Chest pain. 2. Shortness of breath. HISTORY OF PRESENT ILLNESS: The patient is an 82-year-old white female who is known to me and has longstanding history of coronary artery disease, angina pectoris, status post PCI/stenting, history of dyslipidemia, hypertension, hypertensive cardiovascular disease, chronic bronchial asthma, chronic obstructive pulmonary disease, history of diet-controlled diabetes mellitus, proteinuria. Patient stated that for the last 2 weeks she has been feeling extremely fatigued. Yesterday, she developed exertional chest pain which was anteriorly located, was nonradiating, nonpleuritic, relieved by rest, but every time she would try to walk, the pain would recur and was always accompanied by shortness of breath. The pain would usually last about 5 minutes. Today, she had recurrence of chest pains, but the episodes were prolonged, and she finally decided to come to the emergency room. The patient did not take nitroglycerin as prescribed but did use her rescue inhaler without any significant effect. She did experience slight sweating with her last episode. There is no history of paroxysmal nocturnal dyspnea or orthopnea. No history of palpitations, lightheadedness, dizziness, presyncope, or syncope reported. No nausea or vomiting. Patient has been experiencing intermittent right upper quadrant discomfort which she attributes to constipation. PAST HISTORY: As mentioned in the history of present illness. SURGICAL HISTORY: Status post tonsillectomy. Status post partial colectomy for carcinoma of the colon. 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 Has 3 sons and a daughter who apparently are healthy. She smoked 1 pack of cigarettes per day from the age of 23 to 50 years. She denies excessive use of alcohol. Has a cup of coffee. FAMILY HISTORY: Father at the age of 57 related to carcinoma of the lung. Mother at age 72 related to a myocardial infarction. Has 1 brother who is generally healthy except for arthritis. ALLERGIES: PENICILLIN which causes hives and rash. MEDICATIONS: 1. IV nitroglycerin 10 mcg per minute. 2. IV heparin as per protocol. Prior to admission, patient was on the following medications: 1. Toprol-XL 50 mg p.o. daily nightly. 2. Lipitor 20 mg p.o. alternating with 40 mg. 3. Atacand 4 mg p.o. daily. 4. Lasix 20 mg p.o. daily. 5. Potassium supplement 10 mEq 1 p.o. every other day. 6. Nitrostat 0.4 mg sublingually p.r.n. for chest discomfort. 7. Daliresp 500 mg p.o. daily. 8. ProAir 2 inhalations q.i.d. p.r.n. 9. Breo 1 inhalation daily. 10. Aspirin 81 mg p.o. daily. 11. Folic acid 1 mg p.o. daily. 12. Iron supplement 150 mg p.o. daily. 13. Vitamin D3 at 1000 international units p.o. daily. 14. Vitamin C 500 mg p.o. daily. 15. Vitamin B12 at 1000 mcg p.o. daily. 16. Ranexa 500 mg p.o. q.12 hours. REVIEW OF SYSTEMS: Constitutional: No history of chills, fever, or night sweats. No history of unintentional weight loss. HEENT: Denies having any headaches, diplopia, blurred vision. No history of epistaxis, hoarseness, tinnitus, or deafness reported. Cardiovascular: See history of present illness. Respiratory: See history of present illness. Gastrointestinal: History of intermittent constipation. See history of present illness. No history of nausea, vomiting, melena, or hematemesis. Neurological: No history of seizures, syncope, or focal weakness. No history of lightheadedness or dizziness. Endocrine: History of thyroid nodules. No history of intolerance to cold or warm weather. Musculoskeletal: History of arthritis involving the hands and knees. Hematological: No history of bleeding, ecchymosis. History of anemia. PHYSICAL EXAMINATION: General: An 82-year-old female who at the time of examination was alert. There was no pallor, cyanosis, clubbing, or jaundice. Vital Signs: Weight 173 pounds. Blood pressure 138/78 mmHg. Pulse 78 beats per minute and regular. Respirations were 18 per minute. Oxygen saturation on O2 was . Neck: Supple. No jugular venous distention. Carotids were equal, and upstrokes were normal. No bruits were heard, and no thyromegaly was present. Heart: No heaves or thrills. S1 and S2 were normal. No murmur or gallops were heard. Lungs: Clear on auscultation. Chest: Normal AP diameter. Expansion was symmetrical. Abdomen: Soft, nontender. Protuberant, soft, and nontender. No hepatosplenomegaly or palpable masses were felt. Extremities: No calf tenderness or dependent edema. Pulses were equal. ECG of July 20 at 1312 hours: Sinus rhythm with interatrial conduction abnormality, nonspecific ST abnormalities. No previous ECG was available for comparison. LABORATORY DATA: CBC: WBC count 6800, hemoglobin 12.8 g/dL, platelet count 217,000. Neutrophils were 70.1%, lymphocytes 17.8%, monocytes 6.9%, eosinophils 4.5%, basophils 0.7%. Sodium 139, potassium 4.1, chloride 106, CO2 of 26, BUN 27, creatinine 1.0 mg/dL. Random glucose 109 mg/dL. Magnesium 1.8. Troponin less than 0.02. BNP 2150.93. X-ray chest impression: No acute pathology or significant change since March 2017. IMPRESSION: 1. Clinical presentation consistent with coronary artery disease, new-onset angina pectoris, history of percutaneous coronary intervention/stenting. 2. Diet-controlled diabetes mellitus. 3. Hypertension and hypertensive cardiovascular disease. 4. Bronchial asthma. 5. Chronic obstructive pulmonary disease. 6. Hypercholesterolemia. 7. History of proteinuria. 8. History of poor compliance. RECOMMENDATIONS: 1. Serial EKG and enzymes. 2. Continue current medications. 3. Follow up basic metabolic profile. PROGNOSIS: Critical. ADDENDUM: Patient had slight drop of blood pressure without symptoms and then suddenly became diaphoretic and hypertensive, was placed into Trendelenburg position, was receiving IV fluids. IV nitroglycerin was discontinued. The diaphoresis stopped. She had transient chest pain that abated spontaneously. A repeat ECG was done and revealed sinus rhythm, and when compared to earlier tracing, there were no significant changes recorded. With IV fluids, the blood pressure has stabilized. Patient is asymptomatic, is warm and dry. She is still receiving IV fluids. Followup troponins and ECGs are to be done, and patient is to be monitored in intensive care unit. Examination remains unchanged. I spoke to family at length and advised that she remains critically ill. Thank you for your consultation. Yours sincerely, ARTIE CUMMINS M.D. [id number]
[2017-07-20] MEDS ORDERED: ATORVASTATIN CA 20 MG TABLET (FP) PO SCH (22:00)
[2017-07-20] MEDS: RANITIDINE HCL 150 MG TABLET (FP) PO SCH (23:06)
[2017-07-21 07:33] LABS: BASO % 0.9 % (0-2.0); HEMOGLOBIN 10.3 GM/dL (10.7-15.3); LYMPH % 26.4 % (8-40); MCH 30.1 pg (25.7-33.7); MCHC 34.3 g/dl (32.0-36.0); MEAN PLT VOLUME 7.7 fl (7.5-11.1); MONO % 8.5 % (3.8-10.2); NEUT % 58.2 % (42.8-82.8); PLATELET COUNT 174 K/MM3 (134-434); RBC 3.41 M/mm3 (3.60-5.2); RDW 13.4 % (11.6-15.6); WHITE BLOOD COUNT 5.3 K/mm3 (4.0-10.0)
[2017-07-21 09:21] LABS: ANION GAP 9 (8-16); BLOOD UREA NITROGEN 32 mg/dL (7-18); CALCIUM 8.3 mg/dL (8.5-10.1); CHLORIDE 110 mmol/L (98-107); CHOLESTEROL 210 mg/dL (50-200); CO2 21 mmol/L (21-32); CREATININE 1.2 mg/dL (0.55-1.02); GLUCOSE,RANDOM 97 mg/dL (74-106); LDL CHOLESTEROL (ONLY SJRH) 128 mg/dL (5-100); MAGNESIUM 1.9 mg/dL (1.8-2.4); PHOSPHOROUS 4.4 mg/dL (2.5-4.9); POTASSIUM 3.8 mmol/L (3.5-5.1); SGOT/AST 14 U/L (15-37); SGPT/ALT 15 U/L (12-78); SODIUM 140 mmol/L (136-145); TOT PROT 5.7 g/dl (6.4-8.2); TRIGLYCERIDES 74 mg/dL (35-160)
[2017-07-21 09:23] LABS: ALK PHOS 47 U/L (45-117); BILIRUBIN,TOTAL 0.6 mg/dL (0.2-1.0); HDL CHOLESTEROL 75 mg/dL (40-60)
[2017-07-21] MEDS: FOLIC ACID 1 MG TABLET (FP) PO SCH (09:29)
[2017-07-21] MEDS: FUROSEMIDE 20 MG TABLET (FP) PO SCH ×2 (09:29→11:42)
[2017-07-21] MEDS: CYANOCOBALAMIN 1,000 MCG TABLET (FP) PO SCH (09:29)
[2017-07-21] MEDS: RANITIDINE HCL 150 MG TABLET (FP) PO SCH ×2 (09:30→21:26)
[2017-07-21] MEDS: ASCORBIC ACID 500 MG TABLET (FP) PO SCH (09:30)
--- NOTE | 2017-07-21 09:47 | PN ---
Progress Note, Physician Chief Complaint: Pt sitting in bed in no acute distress. Denies any chest pain, chest discomfort , n/v/d, or weakness. - Current Medication List Current Medications: Active Medications Albuterol Sulfate (Ventolin Hfa Inhaler -) 2 puff IH Q4HWA PRN PRN Reason: sob Ascorbic Acid (Vitamin C -) 500 mg PO DAILY [facility] Last Admin: 07/21/17 09:30 Dose: 500 mg Atorvastatin Calcium (Lipitor -) 20 mg PO HS [facility] Cyanocobalamin (Vitamin B12 -) 1,000 mcg PO DAILY [facility] Last Admin: 07/21/17 09:29 Dose: 1,000 mcg Folic Acid (Folic Acid -) 1 mg PO DAILY [facility] Last Admin: 07/21/17 09:29 Dose: 1 mg Furosemide (Lasix -) 20 mg PO DAILY [facility] Last Admin: 07/21/17 09:29 Dose: 20 mg Heparin Sodium (Porcine) (Heparin -) 1,000 unit IVPUSH PRN PRN PRN Reason: Heparin Last Admin: 07/20/17 23:57 Dose: 1,000 unit Heparin Sodium (Porcine) (Heparin -) 5,000 unit IVPUSH PRN PRN PRN Reason: Heparin HEPARIN SOD,PORK IN 0.45% NACL (Heparin-1/2ns 25,000 Units/500) 25,000 units in 500 mls @ 20 mls/hr IVPB TITR OJRGE; 1,000 UNITS/HR PRN Reason: Protocol Last Titration: 07/21/17 00:00 Dose: 1,100 units/hr, 22 mls/hr Nitroglycerin/Dextrose (Nitroglycerin 25mg/D5w 250ml) 25 mg in 250 mls @ 6 mls/ hr IVPB TITR JORGE; 10 MCG/MIN PRN Reason: Protocol Last Titration: 07/20/17 18:50 Dose: 0 mcg/min, 0 mls/hr Metoprolol Succinate (Toprol Xl -) 50 mg PO DAILY [facility] Non-Formulary Medication (Cholecalciferol (Vitamin D3) [Vitamin D3]) 2,000 unit PO DAILY [facility] Non-Formulary Medication (Fluticasone/Vilanterol [Breo Ellipta 200-25 Mcg Inh]) 1 each IH DAILY [facility] Polysaccharide Iron Complex (Niferex-150 -) 150 mg PO DAILY [facility] Ranitidine HCl (Zantac -) 150 mg PO BID [facility] Last Admin: 07/21/17 09:30 Dose: 150 mg Roflumilast (Daliresp -) 500 mcg PO DAILY [facility] - Objective Vital Signs: Vital Signs Temperature 97.5 F L 07/21/17 09:30 Pulse Rate 66 07/21/17 09:30 Respiratory Rate 18 07/21/17 09:30 Blood Pressure 87/38 07/21/17 09:30 O2 Sat by Pulse Oximetry (%) 99 07/20/17 19:10 Constitutional: Yes: Well Nourished, No Distress Cardiovascular: Yes: WNL, Regular Rate and Rhythm Respiratory: Yes: WNL, Regular, CTA Bilaterally. No: Rhonchi, SOB, Tachypnea, Wheezes Gastrointestinal: Yes: WNL, Normal Bowel Sounds, Soft. No: Distention, Tenderness Genitourinary: Yes: WNL Edema: Yes Edema: LLE: Trace, RLE: Trace Neurological: Yes: WNL, Alert, Oriented Psychiatric: Yes: WNL, Alert, Oriented Labs: CBC, BMP 07/21/17 06:58 07/21/17 06:58 INR, PTT INR 0.99 (0.82-1.09) 07/20/17 14:27 Problem List - Problems (1) Unstable angina Code(s): I20.0 - UNSTABLE ANGINA (2) CAD (coronary artery disease) Code(s): I25.10 - ATHSCL HEART DISEASE OF [place] CORONARY ARTERY W/O ANG PCTRS Qualifiers: [place] vs. transplanted heart: [place] heart Associated angina: with unstable angina (3) Diabetes Code(s): E11.9 - TYPE 2 DIABETES MELLITUS WITHOUT COMPLICATIONS Qualifiers: Diabetes mellitus type: type 2 Diabetes mellitus residential insulin use: without assistant terminal manager use Diabetes mellitus complication status: with kidney complications Diabetes mellitus complication detail: with chronic kidney disease Chronic kidney disease stage: stage 2 (mild) Qualified Code(s): E11.22 - Type 2 diabetes mellitus with diabetic chronic kidney disease; N18.2 - Chronic kidney disease, stage 2 (mild); N18.2 - Chronic kidney disease, stage 2 (mild) (4) HLD (hyperlipidemia) Code(s): E78.5 - HYPERLIPIDEMIA, UNSPECIFIED (5) HTN (hypertension) Code(s): I10 - ESSENTIAL (PRIMARY) HYPERTENSION Qualifiers: Hypertension type: essential hypertension Qualified Code(s): I10 - Essential (primary) hypertension (6) Asthma Code(s): J45.909 - UNSPECIFIED ASTHMA, UNCOMPLICATED Qualifiers: Asthma severity: mild Asthma persistence: intermittent Asthma complication type: uncomplicated Qualified Code(s): J45.20 - Mild intermittent asthma, uncomplicated (7) History of colon cancer Code(s): Z85.038 - PERSONAL HISTORY OF MALIGNANT NEOPLASM OF LARGE INTESTINE (8) Orthostatic hypotension Code(s): I95.1 - ORTHOSTATIC HYPOTENSION (9) Hypokalemia Code(s): E87.6 - HYPOKALEMIA Assessment/Plan (1) Unstable angina Assessment/Plan: chest heaviness with exertion and rest currently denies at the moment tropx3 neg ekg without acute changes jeff score 4 [id number] once nitro drip/heparin drip per nitro drip stopped yesterday due to hypotension tele cardiology consulted Code(s): I20.0 - UNSTABLE ANGINA (2) CAD (coronary artery disease) Assessment/Plan: s/p pci stent as above Code(s): I25.10 - ATHSCL HEART DISEASE OF [place] CORONARY ARTERY W/O ANG PCTRS Qualifiers: [place] vs. transplanted heart: [place] heart Associated angina: with unstable angina (3) Diabetes Assessment/Plan: chronic, off meds, uncontrolled HgA1c 6.6 consider starting metformin when stable will monitor Code(s): E11.9 - TYPE 2 DIABETES MELLITUS WITHOUT COMPLICATIONS Qualifiers: Diabetes mellitus type: type 2 Diabetes mellitus assistant terminal manager insulin use: without residential use Diabetes mellitus complication status: with kidney complications Diabetes mellitus complication detail: with chronic kidney disease Chronic kidney disease stage: stage 2 (mild) Qualified Code(s): E11.22 - Type 2 diabetes mellitus with diabetic chronic kidney disease; N18.2 - Chronic kidney disease, stage 2 (mild); N18.2 - Chronic kidney disease, stage 2 (mild) (4) HLD (hyperlipidemia) Assessment/Plan: chronic, needs better control lipid panel reviewed LDL goal<70 continue statin, will discuss with lapping machine operator regarding increasing Code(s): E78.5 - HYPERLIPIDEMIA, UNSPECIFIED (5) HTN (hypertension) Assessment/Plan: controlled continue metoprolol Code(s): I10 - ESSENTIAL (PRIMARY) HYPERTENSION Qualifiers: Hypertension type: essential hypertension Qualified Code(s): I10 - Essential (primary) hypertension (6) Asthma Assessment/Plan: chronic, stable Code(s): J45.909 - UNSPECIFIED ASTHMA, UNCOMPLICATED Qualifiers: Asthma severity: mild Asthma persistence: intermittent Asthma complication type: uncomplicated Qualified Code(s): J45.20 - Mild intermittent asthma, uncomplicated (7) History of colon cancer Assessment/Plan: s/p colon resection Code(s): Z85.038 - PERSONAL HISTORY OF MALIGNANT NEOPLASM OF LARGE INTESTINE (8) Orthostatic hypotension Assessment/Plan: positive orthostatics today will give 500ml NS bolus will monitor Code(s): I95.1 - ORTHOSTATIC HYPOTENSION (9) Hypokalemia Assessment/Plan: k3.8 [id number] ordered monitor bmp Code(s): E87.6 - HYPOKALEMIA
[2017-07-21] MEDS ORDERED: SODIUM CHLORIDE 500 ML IV STA (09:54)
[2017-07-21] MEDS ORDERED: PATIENT'S OWN MEDICATION (NON-FORMULARY) (Fluticasone/Vilanterol [Breo Ellipta 200-25 Mcg IH SCH (10:00)
[2017-07-21] MEDS ORDERED: NITROGLYCERIN SUBLINGUAL 1/200 0.3 MG BTL SL PRN (11:18)
[2017-07-21] MEDS: ROFLUMILAST 500 MCG TABLET PO SCH (11:40)
[2017-07-21] MEDS: IRON POLYSACCHARIDES 150 MG CAPSULE PO SCH (11:40)
[2017-07-21] MEDS ORDERED: POTASSIUM CHLORIDE TABS 20 MEQ TABLET.ER (FP) PO ONE (11:45)
[2017-07-21] MEDS ORDERED: PT OWN MED DRAWER 7, Y5N ONE (12:47)
--- NOTE | 2017-07-21 13:44 | PN ---
Progress Note (short form) - Note Progress Note: 82 year old white female known case of CAD,angina pectoris,s/p PCI/stenting hypertension,HVCD, diet controlled DM, proteinuria, dyslipidemia, bronchial asthma, COPD, and anemia, admitted with chest pains( heaviness) starting on 03/26. Had multiple episodes with minimal exertion and accompanied by dyspnea and relieved by rest.The following day she had pain on waking up in the morning and had several episodes with minimal activity and called the office and advised immediate hospitalization. she did not take S/L NTG. She had an anterior chest burning sensation while on IV NTG. and heparin accompanied with severe diaphoresis and near syncopal episode. IV NTG. was d/c'd and given IV fluids, she quickly recovered. F/u EKG and Trops. were negative. She had mild post prandial chest discomfort lastind a few minutes. pain are non pleuritic and non radiating.Received 500ml of fluids because of low BP and increase BUN and Cr. Active Medications Generic Name Dose Route Start Last Admin Trade Name Freq PRN Reason Stop Dose Admin Albuterol Sulfate 2 puff 07/20/17 18:15 Ventolin Hfa Inhaler - IH Q4HWA PRN sob Ascorbic Acid 500 mg 07/21/17 10:00 07/21/17 09:30 Vitamin C - PO 500 mg DAILY [facility] Administration Atorvastatin Calcium 20 mg 07/21/17 22:00 Lipitor - PO HS [facility] Cyanocobalamin 1,000 mcg 07/21/17 10:00 07/21/17 09:29 Vitamin B12 - PO 1,000 mcg DAILY [facility] Administration Folic Acid 1 mg 07/21/17 10:00 07/21/17 09:29 Folic Acid - PO 1 mg DAILY [facility] Administration Furosemide 20 mg 07/22/17 10:00 Lasix - PO Q2D@1000 [facility] Heparin Sodium (Porcine) 1,000 unit 07/20/17 16:47 07/20/17 23:57 Heparin - IVPUSH 1,000 unit PRN PRN Administration Heparin Heparin Sodium (Porcine) 5,000 unit 07/20/17 16:47 Heparin - IVPUSH PRN PRN Heparin HEPARIN SOD,PORK IN 0.45% NACL 25,000 units in 500 mls @ 20 mls/hr 07/20/17 17 :00 07/21/17 08:00 Heparin-1/2ns 25,000 Units/500 IVPB 1,050 units/hr TITR [facility]OR[facility] 21 mls/hr Protocol Titration 1,000 UNITS/HR Metoprolol Succinate 50 mg 07/21/17 10:00 07/21/17 11:41 Toprol Xl - PO Not Given DAILY [facility] Nitroglycerin 0.3 mg 07/21/17 11:18 Nitrostat - SL Q5M PRN FOR CHEST PAIN Non-Formulary Medication 2,000 unit 07/21/17 10:00 Cholecalciferol (Vitamin D3) [Vitamin D3] PO DAILY [facility] Non-Formulary Medication 1 each 07/21/17 10:00 Fluticasone/Vilanterol [Breo Ellipta 200-25 Mcg Inh] IH DAILY [facility] Polysaccharide Iron Complex 150 mg 07/21/17 10:00 07/21/17 11:40 Niferex-150 - PO 150 mg DAILY [facility] Administration Ranitidine HCl 150 mg 07/20/17 22:00 07/21/17 09:30 Zantac - PO 150 mg BID [facility] Administration Roflumilast 500 mcg 07/21/17 10:00 07/21/17 11:40 Daliresp - PO 500 mcg DAILY [facility] Administration 82 year old female in no acute distress, no pallor, cyanosis, clubbing or jaundice. CBC, BMP 07/21/17 06:58 Troponin, BNP 07/20/17 07/20/17 07/20/17 14:27 14:36 19:24 Troponin I < 0.02 < 0.02 B-Natriuretic Peptide 250.93 07/21/17 07/21/17 06:58 06:58 Troponin I < 0.02 Cancelled B-Natriuretic Peptide Last Vital Signs Temp Pulse Resp BP Pulse Ox 97.5 F L 66 18 87/38 97 07/21/17 09:30 07/21/17 09:30 07/21/17 09:30 07/21/17 09:30 07/21/17 08:00 NECK: Supple, no JVD, carotids 2+. no bruits or thyromegaly. HEART: PMI in the 5th ICS, no heaves or thrills. S1 & S2 are normal. No murmur or gallops heard. LUNGS: Clear on ausculstation. ABDOMEN: Soft, nontender, no organomegaly or masses felt. EXTERMETIES: No calf tenderness or dependent edema. EKG 07/21/17: NSR, normal ST-T waves. IMPRESSION: 1. CAD,s/p PCI/Stenting, recurrence of progressive angina pectoris. 2. Hypertension. 3. Diet controlled DM. 4. Dyslipidemia, poorly controlled. 5. Bronchila asthma. 6. COPD. 7. H/o proteinuria. RECOMMENDATIONS: 1. Resume Ranexa 500mg. Po Q12 h. 2 Plavix 75mg. po daily. 3. In wiew of her symptoms would recommend transfer to medical center for a cardiac cath. 4. Discussed with patient in the presence of her daughter reguarding transfer and she is agreebale and wants arrangements to be made. 5. Continue current Rx. Time spent: 50 mins.
[2017-07-21] MEDS ORDERED: CLOPIDOGREL BISULFATE 75 MG TABLET (FP) PO ONE (14:43)
[2017-07-21] MEDS: predniSONE 20 MG TABLET (UD) PO SCH (15:57)
[2017-07-21] MEDS: HEPARIN SOD,PORK IN 0.45% NACL 25,000 UNITS/500 ML INFUS.BAG IVPB SCH (16:03)
[2017-07-21] MEDS: RANOLAZINE E.R. 500 MG TABLET (FP) PO SCH (21:26)
[2017-07-21] MEDS ORDERED: ATORVASTATIN CA 20 MG TABLET (FP) PO SCH (22:00)
[2017-07-22 07:32] LABS: HEMATOCRIT 31.8 % (32.4-45.2); MCH 30.5 pg (25.7-33.7); MCHC 34.7 g/dl (32.0-36.0); MEAN CELL VOLUME 87.9 fl (80-96); MEAN PLT VOLUME 7.8 fl (7.5-11.1); PLATELET COUNT 180 K/MM3 (134-434); RBC 3.61 M/mm3 (3.60-5.2); RDW 13.5 % (11.6-15.6); WHITE BLOOD COUNT 5.9 K/mm3 (4.0-10.0)
[2017-07-22] MEDS: HEPARIN SOD,PORK IN 0.45% NACL 25,000 UNITS/500 ML INFUS.BAG IVPB SCH (08:04)
[2017-07-22] MEDS ORDERED: PT OWN MED DRAWER 7, Y5N ONE (09:35)
[2017-07-22] MEDS: predniSONE 20 MG TABLET (UD) PO SCH (09:40)
[2017-07-22] MEDS: FOLIC ACID 1 MG TABLET (FP) PO SCH (09:40)
[2017-07-22] MEDS: ROFLUMILAST 500 MCG TABLET PO SCH (09:40)
[2017-07-22] MEDS: CYANOCOBALAMIN 1,000 MCG TABLET (FP) PO SCH (09:40)
[2017-07-22] MEDS: IRON POLYSACCHARIDES 150 MG CAPSULE PO SCH (09:40)
[2017-07-22] MEDS: RANOLAZINE E.R. 500 MG TABLET (FP) PO SCH (09:40)
[2017-07-22] MEDS: RANITIDINE HCL 150 MG TABLET (FP) PO SCH (09:40)
[2017-07-22] MEDS: ASCORBIC ACID 500 MG TABLET (FP) PO SCH (09:40)
[2017-07-22] MEDS ORDERED: FUROSEMIDE 20 MG TABLET (FP) PO SCH (10:00)
--- NOTE | 2017-07-22 11:07 | DS ---
Physical Examination Vital Signs: Vital Signs Temperature 97.8 F 07/22/17 05:49 Pulse Rate 73 07/22/17 05:49 Respiratory Rate 20 07/22/17 05:49 Blood Pressure 122/58 07/22/17 05:49 O2 Sat by Pulse Oximetry (%) 97 07/21/17 21:00 Constitutional: Yes: Well Nourished, No Distress Cardiovascular: Yes: WNL, Regular Rate and Rhythm. No: Tachycardia, Pulse Irregular, Rub Respiratory: Yes: WNL, Regular, CTA Bilaterally. No: Accessory Muscle Use, Tachypnea, Wheezes Gastrointestinal: Yes: WNL, Normal Bowel Sounds. No: Distention, Tenderness Renal/: Yes: WNL Edema: Yes Edema: LLE: Trace, RLE: Trace Neurological: Yes: WNL, Alert, Oriented Psychiatric: Yes: WNL, Alert, Oriented Labs: CBC, BMP 07/22/17 07:12 07/21/17 06:58 Discharge Summary Reason For Visit: CHEST PAIN Current Active Problems Asthma (Acute) Chest pain (Acute) History of colon cancer (Acute) Hypokalemia (Acute) Orthostatic hypotension (Acute) Hospital Course: is a pleasant 82 year old female with pmh of HTN, HLD, NIDDM, CAD s /p stent, CHF, CKD, COPD, asthma, GERD, colon cancer (s/p colectomy) who has been admitted for unstable angina. EKG without acute changes, trops neg. Cardiology has been following pt and plan to transfer to [facility] today for cath tomorrow. Otherwise, course of stay unremarkable. Pt had hypotention with nitro in which it was stopped. Ranexa restarted. Pt was maintained on heparin drip. She has otherwise been doing well. Her lipid panel reveals dyslipidemia, HgA1c 6.6, Pt advised she needs strict control post acute phase currently. Pt advised to f/u as directed for further management of her chronic conditions. Condition: Critical - Instructions Diet, Activity, Other Instructions: Transfer to [facility] Plan for cath tomorrow continue Heparin drip, holding ASA while on heparin drip ranexa bid home meds as directed, further management per cardiology HgA1c 6.6, Lipid panel -dyslipidemia- please f/u with pcp for further management and monitoring f/u as directed in 1 week Referrals: Ethan Li MD [Staff Physician] - 1 Week Juan José Hardin MD [Primary Care Provider] - 1 Week Disposition: TRANSFER ACUTE CARE/OTHER HOSP - Home Medications Comprehensive Discharge Medication List: Ambulatory Orders Albuterol Sulfate [Proair Hfa] 2 puff IH Q4HWA PRN 07/20/17 Ascorbic Acid [Vitamin C] 500 mg PO DAILY 07/20/17 Aspirin [Ecotrin] 81 mg PO DAILY 07/20/17 Atorvastatin Ca [Lipitor] 20 mg PO HS 07/20/17 Candesartan Cilexetil [Atacand (Nf) -] 4 mg PO DAILY 07/20/17 Cholecalciferol (Vitamin D3) [Vitamin D3] 2,000 unit PO DAILY 07/20/17 Cyanocobalamin (Vitamin B-12) [Vitamin B-12] 1,000 mcg PO DAILY 07/20/17 Fluticasone/Vilanterol [Breo Ellipta 200-25 Mcg INH] 1 each IH DAILY 07/20/17 Folic Acid 1 mg PO DAILY 07/20/17 Furosemide [Lasix -] 20 mg PO DAILY 07/20/17 Iron Polysaccharide Complex [Poly-Iron] 150 mg PO DAILY 07/20/17 Metoprolol Succinate [Toprol Xl -] 50 mg PO DAILY 07/20/17 Potassium Chloride 10 meq PO ASDIR 07/20/17 Ranitidine [Zantac -] 150 mg PO BID 07/20/17 Ranolazine [Ranexa -] 500 mg PO BID 07/20/17 Roflumilast [Daliresp] 500 mcg PO DAILY 07/20/17
[2017-07-22 11:36] VITALS: BP 126/78; PULSE 80; TEMP 98
[2017-07-23] MEDS ORDERED: FUROSEMIDE 20 MG TABLET (FP) PO SCH (10:00)
--- NOTE | 2017-07-23 12:51 | EKG ---
Test Reason : Blood Pressure : / mmHG Vent. Rate : 066 BPM Atrial Rate : 066 BPM P-R Int : 146 ms QRS Dur : 104 ms QT Int : 418 ms P-R-T Axes : 054 039 051 degrees QTc Int : 438 ms NORMAL SINUS RHYTHM NORMAL ECG WHEN COMPARED WITH ECG OF 20-JUL-2017 19:02, FUSION COMPLEXES ARE NO LONGER PRESENT ABERRANT CONDUCTION IS NO LONGER PRESENT Confirmed by TERRY BRANDON, ERIKA ([id number]) on 07/23/2017 12:50:50 PM Referred By: Jeffrey DONOVAN Confirmed By:ERIKA STEWART MD
--- NOTE | 2017-07-23 12:54 | EKG ---
Test Reason : Blood Pressure : / mmHG Vent. Rate : 070 BPM Atrial Rate : 070 BPM P-R Int : 164 ms QRS Dur : 102 ms QT Int : 404 ms P-R-T Axes : 057 052 067 degrees QTc Int : 436 ms POOR DATA QUALITY, INTERPRETATION MAY BE ADVERSELY AFFECTED SINUS RHYTHM WITH FUSION COMPLEXES AND PREMATURE ATRIAL COMPLEXES WITH ABERRANT CONDUCTION OTHERWISE NORMAL ECG WHEN COMPARED WITH ECG OF 20-JUL-2017 13:12, FUSION COMPLEXES ARE NOW PRESENT ABERRANT CONDUCTION IS NOW PRESENT Confirmed by ERIKA STEWART MD ([id number]) on 07/23/2017 12:53:50 PM Referred By: Confirmed By:ERIKA STEWART MD
--- NOTE | 2017-07-23 12:58 | EKG ---
Test Reason : Blood Pressure : / mmHG Vent. Rate : 072 BPM Atrial Rate : 072 BPM P-R Int : 158 ms QRS Dur : 100 ms QT Int : 392 ms P-R-T Axes : 049 051 058 degrees QTc Int : 429 ms POOR DATA QUALITY, INTERPRETATION MAY BE ADVERSELY AFFECTED NORMAL SINUS RHYTHM WITH SINUS ARRHYTHMIA LOW VOLTAGE QRS BORDERLINE ECG WHEN COMPARED WITH ECG OF 29-MAR-2017 10:09, NO SIGNIFICANT CHANGE WAS FOUND Confirmed by ERIKA STEWART MD ([id number]) on 07/23/2017 12:58:05 PM Referred By: Confirmed By:ERIKA STEWART MD
== END 2017-07-22 11:45 | disposition short-term general hospital (02) | DRG 303 ==
LOC: JER 13:00 → JERBED 16:22 → OBSVTOIN 16:47 → J4W 20:32
PROVIDERS: ADMIT Internal Medicine; ATTEND Internal Medicine
DX: I25.110 Atherosclerotic heart disease of native coronary artery with unstable angina pectoris (principal); I12.9 Hypertensive chronic kidney disease with stage 1 through stage 4 chronic kidney disease, or unspecified chronic kidney disease; I50.9 Heart failure, unspecified; J44.9 Chronic obstructive pulmonary disease, unspecified; E11.22 Type 2 diabetes mellitus with diabetic chronic kidney disease; Z85.038 Personal history of other malignant neoplasm of large intestine; N18.2 Chronic kidney disease, stage 2 (mild); I95.2 Hypotension due to drugs; E78.5 Hyperlipidemia, unspecified; Z88.0 Allergy status to penicillin; K21.9 Gastro-esophageal reflux disease without esophagitis; Z95.5 Presence of coronary angioplasty implant and graft; E87.6 Hypokalemia; D64.9 Anemia, unspecified; T46.3X5A Adverse effect of coronary vasodilators, initial encounter
CPT/HCPCS: 36415; 71045-TC-FY; 80053; 80061; 81003; 81015; 82550; 83036; 83690; 83721; 83735; 83880; 84100; 84484; 85025; 85027; 85610; 85730; 87086; 93005; 93010; 99283-25; G0378; J1644

== ENCOUNTER 2017-08-25 10:50 | Emergency (ER) | payer OTHER ==
[2017-08-25 11:05] VITALS: TEMP 97.9; BMI 29.2
[2017-08-25] MEDS ORDERED: DIPHTH,PERTUSS(ACELL),TET 0.5 ML DISP.SYRIN IM ONE (11:18)
--- NOTE | 2017-08-25 11:27 | PDOC ---
History of Present Illness - General Chief Complaint: Injury Stated Complaint: FALL Time Seen by Provider: 08/25/17 10:59 - History of Present Illness Initial Comments: 82 year old female with pmh of HTN, HLD, NIDDM, CAD s/p stent, CHF, CKD, COPD, asthma, GERD, colon cancer (s/p colectomy), who presents to the emergency department s/p mechanical fall this AM. Pt was placing paper in her recycling bin outside at her house and suffered a mechanical fall backwards, landing on brick stairs, striking her L postero-lateral head and landing on her L side. Pt states after she fell, a pile of bricks became dislodged and landed on her. Pt denies any LOC, dizziness, CP, SOB, weakness. After fall, pt endorsed pain in head. EMS was activated by daughter at home. Upon exam, pt complaining of L groin pain, posterior L headache, L knee pain and arm pain in L forearm. Patient denies chest pain, shortness of breath, or dizziness. Denies fever, chills, nausea, vomiting, diarrhea and constipation. Denies dysuria, frequency, urgency and hematuria. Past surgical history: Collectomy, tonsillectomy Social History: quit smoking 30 years ago, no alcohol, drug use; lives alone PMD: Dr. Hardin Allergies Allergy/AdvReac Type Severity Reaction Status Date / Time Penicillins Allergy Intermediate Hives Verified 07/20/17 13:06 ibuprofen [From Advil] Allergy "heart Verified 07/20/17 13:06 attack like symptoms shellfish derived Allergy Verified 07/20/17 17:53 08/25/17 12:00 Past History - Past Medical History Allergies/Adverse Reactions: Allergies Allergy/AdvReac Type Severity Reaction Status Date / Time Penicillins Allergy Intermediate Hives Verified 07/20/17 13:06 ibuprofen [From Advil] Allergy "heart Verified 07/20/17 13:06 attack like symptoms shellfish derived Allergy Verified 07/20/17 17:53 Home Medications: Ambulatory Orders Albuterol 0.083% Nebulizer Aaliyah [Ventolin 0.083%] 1 neb NEB Q4H PRN 08/25/17 Albuterol Sulfate Inhaler - [Ventolin Hfa Inhaler -] 1 - 2 inh PO Q4H PRN Atorvastatin Ca [Lipitor] 20 mg PO HS 08/25/17 Atorvastatin Ca [Lipitor] 40 mg PO HS 08/25/17 Candesartan Cilexetil [Atacand (Nf) -] 4 mg PO DAILY 08/25/17 Cyanocobalamin [Vitamin B12 -] 1,000 mcg PO DAILY 08/25/17 Ergocalciferol (Vitamin D2) [Vitamin D2] 2,000 unit PO DAILY 08/25/17 Fluticasone/Vilanterol [Breo Ellipta 200-25 Mcg INH] 1 each IH DAILY 08/25/17 Folic Acid 1 mg PO DAILY 08/25/17 Furosemide [Lasix -] 20 mg PO DAILY 08/25/17 Iron 150 mg PO DAILY 08/25/17 Metoprolol Succinate [Toprol Xl] 50 mg PO DAILY 08/25/17 Potassium Chloride 10 meq PO DAILY 08/25/17 Ranitidine [Zantac -] 150 mg PO BID 08/25/17 Ranolazine [Ranexa] 500 mg PO BID 08/25/17 Roflumilast [Daliresp -] 500 mcg PO DAILY 08/25/17 Anemia: No Asthma: Yes Cancer: Yes Cardiac Disorders: Yes (stent (2006)) CVA: No COPD: No CHF: No Dementia: No Diabetes: Yes GI Disorders: Yes (reflux) Disorders: No HTN: Yes Hypercholesterolemia: Yes Liver Disease: No Seizures: No Thyroid Disease: Yes (nodules) - Surgical History Abdominal Surgery: No Appendectomy: No Cardiac Surgery: Yes (stent 2006) Cholecystectomy: No Lung Surgery: No Neurologic Surgery: No Orthopedic Surgery: No - Immunization History Immunization Up to Date: No - Suicide/Smoking/Psychosocial Hx Smoking History: Former smoker Have you smoked in the past 12 months: No Number of Cigarettes Smoked Daily: 0 If you are a former smoker, when did you quit?: 30 YEARS AGO Information on smoking cessation initiated: No Hx Alcohol Use: No Drug/Substance Use Hx: No Substance Use Type: None Hx Substance Use Treatment: No Review of Systems - Review of Systems Comments:: GENERAL/CONSTITUTIONAL: No fever or chills. No weakness. HEAD, EYES, EARS, NOSE AND THROAT: +DOVE. No change in vision. No ear pain or discharge. No sore throat. CARDIOVASCULAR: No chest pain or shortness of breath RESPIRATORY: No cough, wheezing, or hemoptysis. GASTROINTESTINAL: No nausea, vomiting, diarrhea or constipation. GENITOURINARY: No dysuria, frequency, or change in urination. MUSCULOSKELETAL: +Pain in L knee, L inguinal crease. No joint or muscle swelling or pain. No neck or back pain. SKIN: No rash NEUROLOGIC: No headache, vertigo, loss of consciousness, or change in strength/ sensation. ENDOCRINE: No increased thirst. No abnormal weight change HEMATOLOGIC/LYMPHATIC: No anemia, easy bleeding, or history of blood clots. ALLERGIC/IMMUNOLOGIC: No hives or skin allergy. 08/25/17 12:10 *Physical Exam - Vital Signs Last Vital Signs Temp Pulse Resp BP Pulse Ox 97.9 F 71 20 113/79 97 08/25/17 11:02 08/25/17 11:02 08/25/17 11:02 08/25/17 11:02 08/25/17 11:02 - Physical Exam Comments: GENERAL: Awake, alert, and fully oriented, in no acute distress HEAD: No signs of trauma, normocephalic, atraumatic EYES: PERRLA, EOMI, sclera anicteric, conjunctiva clear ENT: Auricles normal inspection, hearing grossly normal, nares patent, oropharynx clear without exudates. Moist mucosa NECK: Normal ROM, supple, no lymphadenopathy, JVD, or masses LUNGS: No distress, speaks full sentences, clear to auscultation bilaterally HEART: Regular rate and rhythm, normal S1 and S2, no murmurs, rubs or gallops, peripheral pulses normal and equal bilaterally. ABDOMEN: Soft, nontender, normoactive bowel sounds. No guarding, no rebound. No masses EXTREMITIES : Normal inspection, Normal range of motion, no edema. No clubbing or cyanosis. NEUROLOGICAL: Cranial nerves II through XII grossly intact. Normal speech, normal gait, no focal sensorimotor deficits SKIN: Warm, Dry, normal turgor, no rashes or lesions noted 08/25/17 12:12 ED Treatment Course - LABORATORY CBC & Chemistry Diagram: 08/25/17 13:15 08/25/17 13:15 Medical Decision Making - Medical Decision Making 82 year old female with pmh of HTN, HLD, NIDDM, CAD s/p stent, CHF, CKD, COPD, asthma, GERD, colon cancer (s/p colectomy), who presents to the emergency department s/p mechanical fall this AM. Pt on AC (aspirin) with headstrike Plan: -non-con CT, CT C-spine - CBC, CMP, PT/INR - morphine for pain control - Will require summer for head laceration, stitches for L arm laceration 08/25/17 12:14 All imaging negative. All wounds cleaned, dermabond applied to L arm laceration , L finger laceration. Two summer applied to scalp laceration. Pt pain well controlled, VSS. Will discharge home with outpt f/u in 7-10 days for staple removal. 08/25/17 14:11 *DC/Admit/Observation/Transfer Diagnosis at time of Disposition: Fall Qualifiers: Encounter type: initial encounter Qualified Code(s): W19.XXXA - Unspecified fall, initial encounter Scalp laceration Qualifiers: Encounter type: initial encounter Qualified Code(s): S01.01XA - Laceration without foreign body of scalp, initial encounter - Discharge Dispostion Disposition: HOME Condition at time of disposition: Good Decision to Admit order: No - Referrals Referrals: Juan José Hardin MD [Primary Care Provider] - 1 week - Patient Instructions Printed Discharge Instructions: How to Prevent Falls Additional Instructions: During your visit to the [facility] ED, you were evaluated for a fall with head trauma and multiple lacerations. You received imaging of your head, neck, hips and left knee, all of which were unremarkable. You are being discharged home with outpatient follow-up with your primary care provider in 7-10 days for staple removal of your scalp laceration. Please take tylenol 650mg every four hours if you experience pain, until your symptoms resolve. You may shower in 24 hours. Please apply bacitracin gel every night to your scalp laceration until the summer have been removed. Please apply regular dressings with topical antiseptic to your lacerations You may bear weight on your left leg as tolerated. If you experience any of the following symptoms, please return to the ED: - Persistent fevers/chills >3 days - Swelling, redness or drainage from any of your laceration sites - Severe pain, swelling or redness of your joints - Changes in vision, numbness/weakness in any extremities, or persistent dizziness/loss of consciousness - Inability to bear weight on your left leg - Any new or concerning symptoms - Post Discharge Activity
[2017-08-25] MEDS ORDERED: morphine CARPU-JECT 2 MG/1 ML DISP.SYRIN IVPUSH ONE (12:01)
[2017-08-25] MEDS ORDERED: morphine SULFATE 4 MG/ML VIAL ONE (13:14)
[2017-08-25] MEDS ORDERED: ACETAMINOPHEN 325 MG TABLET (FP) ONE (13:19)
[2017-08-25 13:26] LABS: BASO % 0.6 % (0-2.0); EOS % 2.6 % (0-4.5); HEMATOCRIT 34.7 % (32.4-45.2); LYMPH % 19.1 % (8-40); MCH 30.3 pg (25.7-33.7); MCHC 34.5 g/dl (32.0-36.0); MEAN CELL VOLUME 87.8 fl (80-96); MEAN PLT VOLUME 7.4 fl (7.5-11.1); MONO % 7.7 % (3.8-10.2); PLATELET COUNT 215 K/MM3 (134-434); RBC 3.96 M/mm3 (3.60-5.2); RDW 13.9 % (11.6-15.6); WHITE BLOOD COUNT 5.4 K/mm3 (4.0-10.0)
[2017-08-25 13:37] LABS: INR 0.99 (0.82-1.09); PROTHROMBIN TIME (PATIENT) 11.2 SEC (9.7-13.0)
[2017-08-25 13:53] LABS: ALBUMIN 3.5 g/dl (3.4-5.0); ALK PHOS 59 U/L (45-117); ANION GAP 4 (8-16); BILIRUBIN,TOTAL 0.6 mg/dL (0.2-1.0); BLOOD UREA NITROGEN 24 mg/dL (7-18); CALCIUM 8.9 mg/dL (8.5-10.1); CHLORIDE 107 mmol/L (98-107); CO2 29 mmol/L (21-32); GLUCOSE,RANDOM 121 mg/dL (74-106); POTASSIUM 4.4 mmol/L (3.5-5.1); SGOT/AST 14 U/L (15-37); SGPT/ALT 22 U/L (12-78); SODIUM 140 mmol/L (136-145); TOT PROT 6.7 g/dl (6.4-8.2)
[2017-08-25] MEDS ORDERED: ACETAMINOPHEN 325 MG TABLET (FP) PO ONE (14:10)
[2017-08-25 14:30] VITALS: BP 115/63; PULSE 70
--- NOTE | 2017-08-25 14:35 | PDOC ---
Attending Attestation - Resident Resident Name: Karl Torres - [facility] HPI: 08/25/17 14:38 The patient is a 82 year old female brought via EMS and presenting with daughter , with a significant past medical history of HTN, HLD, NIDDM, CAD s/p stent, CHF , CKD, COPD, GERD and Colon CA s/p colectomy, who presents to the emergency department after a mechanical fall this morning. She notes that she fell backwards and landed on her left side, some brick fell on her, some landing on her head. She denies any loss of consciousness. She currently reports a headache , ranging from mild to moderate, without radiation or modifying factors. She also complains of left groin pain, left knee pain and left forearm pain. The patient denies chest pain, shortness of breath, or dizziness. Denies fever, chills, nausea, vomiting, diarrhea and constipation. Allergies: Penicillin, advil and shellfish Past surgical history: Colectomy and tonsillectomy Social History: Former smoker. No alcohol or drug use reported PMD: Dr. Hardin - Physicial Exam PE: 08/25/17 14:38 GENERAL: Awake, alert, and fully oriented, in no acute distress HEAD: (+) Posterior occipital scalp laceration, no active bleeding, no step off. CHEST: no chest wall tenderness EYES: PERRLA, EOMI, sclera anicteric, conjunctiva clear ENT: Auricles normal inspection, nares patent. Moist mucosa NECK: Normal ROM, supple, no JVD, or masses. No midline tenderness, no cervical spine tenderness. LUNGS: Breath sounds equal, clear to auscultation bilaterally. No wheezes, and no crackles HEART: Regular rate and rhythm, normal S1 and S2, no murmurs, rubs or gallops ABDOMEN: Soft, nontender, normoactive bowel sounds. No guarding, no rebound. No masses EXTREMITIES: Normal range of motion, no edema. No clubbing or cyanosis. No cords, erythema. Left knee tenderness to palpation, but full range of motion, no effusion or deformity left hip tenderness to palpation but full range of motion NEUROLOGICAL: Alert and oriented x 3. Moves all extremities. Face is symmetric. GCS is 15. SKIN: Scalp laceration (see above). Left forearm thin skin aboltion1 cm in lenth. Left middle finger medial laceration / abulsion 0.5 cm. <Siva Tate - Last Filed: 08/25/17 15:09> - Medical Decision Making 08/25/17 15:21 82 yo F with h/o here s/p trip and fall. fell and hit head. no loc. scalp laceration. no neck or back pain. c/o laceration left arm and hand, left hip and knee pain. on exam laceration left forearm, skin avulsion, finger skin avulsion . pelvis stable, left hip ttp. from. knee nt from. head scalp laceration. plan ct head. xray hip knee . tetanus given here in ED. dermabond to left forearm and finger, summer x [address] head negative. dc home. <Griselda Johnson - Last Filed: 08/25/17 15:25>
== END 2017-08-25 14:35 | disposition home or self-care (01) ==
LOC: JER 10:50
PROC: 3E0234Z Introduction of Serum, Toxoid and Vaccine into Muscle, Percutaneous Approach (ICD-10-PCS; principal; 2017-08-25)
PROC: 0HQ0XZZ Repair Scalp Skin, External Approach (ICD-10-PCS; 2017-08-25)
PROC: 0HQEXZZ Repair Left Lower Arm Skin, External Approach (ICD-10-PCS; 2017-08-25)
DX: S01.01XA Laceration without foreign body of scalp, initial encounter (principal); S51.812A Laceration without foreign body of left forearm, initial encounter; S61.213A Laceration without foreign body of left middle finger without damage to nail, initial encounter; W10.8XXA Fall (on) (from) other stairs and steps, initial encounter; W20.8XXA Other cause of strike by thrown, projected or falling object, initial encounter; Y93.89 Activity, other specified; Y92.018 Other place in single-family (private) house as the place of occurrence of the external cause; Y99.8 Other external cause status; I25.10 Atherosclerotic heart disease of native coronary artery without angina pectoris; I13.0 Hypertensive heart and chronic kidney disease with heart failure and stage 1 through stage 4 chronic kidney disease, or unspecified chronic kidney disease; N18.9 Chronic kidney disease, unspecified; I50.89 Other heart failure; Z95.5 Presence of coronary angioplasty implant and graft; J44.9 Chronic obstructive pulmonary disease, unspecified; J45.909 Unspecified asthma, uncomplicated; K21.9 Gastro-esophageal reflux disease without esophagitis; Z85.038 Personal history of other malignant neoplasm of large intestine
CPT/HCPCS: 12001; 36415; 70450-TC; 72125-TC; 73523-TC-FY; 73560-TC-LT-FY; 80053; 85025; 85610; 90471; 90715; 99281-25

== ENCOUNTER 2017-11-28 07:25 | Day surgery (SDC) | payer OTHER ==
[2017-11-27 14:29] VITALS: BMI 29.5
[2017-11-28] MEDS ORDERED: ACETAMINOPHEN 325 MG TABLET (FP) PO PRN (07:46)
[2017-11-28] MEDS ORDERED: TROPICAMIDE 1% OPHTH SOLN 15 ML BOTTLE ONE (07:59)
[2017-11-28] MEDS ORDERED: PHENYLEPHRINE 2.5% OPHTH SOLN 15 ML BOTTLE ONE (07:59)
[2017-11-28] MEDS ORDERED: OFLOXACIN 0.3% OPHTHALMIC SOLUTION 5 ML BOTTLE ONE (07:59)
[2017-11-28] MEDS ORDERED: CYCLOPENTOLATE HCL 1% OPHTH SOLN 2 ML BOTTLE ONE (07:59)
[2017-11-28] MEDS ORDERED: KETOROLAC TROMETHAMINE 0.5% EYE DROP 1 DROP DROPS ONE (07:59)
[2017-11-28] MEDS ORDERED: KETOROLAC TROMETHAMINE 0.5% EYE DROP 1 DROP DROPS OP SCH (08:00)
[2017-11-28] MEDS: PHENYLEPHRINE 2.5% OPHTH SOLN 15 ML BOTTLE OP SCH ×3 (08:10→08:34)
[2017-11-28] MEDS: TROPICAMIDE 1% OPHTH SOLN 15 ML BOTTLE OP SCH ×3 (08:10→08:34)
[2017-11-28] MEDS: OFLOXACIN 0.3% OPHTHALMIC SOLUTION 5 ML BOTTLE OP SCH ×3 (08:10→08:34)
[2017-11-28] MEDS: CYCLOPENTOLATE HCL 1% OPHTH SOLN 2 ML BOTTLE OP SCH ×3 (08:10→08:34)
[2017-11-28] MEDS ORDERED: MIDAZOLAM HCL 2 MG/2 ML SINGLE DOSE VIAL ONE (09:02)
[2017-11-28] MEDS ORDERED: TETRACAINE 0.5% OPHTH SOLN 2 ML BOTTLE OD ONE (09:07)
[2017-11-28] MEDS ORDERED: POVIDONE-IODINE 5% OPHTHALMIC PREP 30 ML SOLUTION OD ONE (09:09)
[2017-11-28] MEDS ORDERED: LIDOCAINE HCL 1% PRESERVATIVE FREE - 30ML VIAL IO ONE (09:18)
[2017-11-28] MEDS ORDERED: CHONDROITIN SU A/HYALUR SOD 1 KIT IO ONE (09:18)
[2017-11-28] MEDS ORDERED: BSS (NA/CA/MG/K) BALANCED SALT SOLUTION OPHTH SOLN 15 ML BOTTLE OD ONE (09:18)
[2017-11-28] MEDS ORDERED: EPINEPHrine/PF 1 MG/1 ML (1:1,000) AMPULE IO ONE (09:24)
[2017-11-28 10:25] VITALS: BP 109/50; PULSE 67; TEMP 67
--- NOTE | 2017-11-28 11:12 | SPEC ---
DATE OF OPERATION: 11/28/2017 PREOPERATIVE DIAGNOSIS: Cataract, right eye. POSTOPERATIVE DIAGNOSIS: Cataract, right eye. PROCEDURE: Phacoemulsification of right cataract with posterior chamber intraocular lens implantation. Lens used [id number], 20.0 Diopter power, Serial No. [id number]. SURGEON: Betsy Hansen M.D. ANESTHESIA: Topical MAC. COMPLICATIONS: None. DESCRIPTION OF PROCEDURE: The patient was brought to the operating room and correctly identified along with the operative site and the correct intraocular lens hopkins. The patient was then prepped and draped in the usual sterile fashion including 5% Betadine solution in the conjunctival sac and an eyelid drape. An eyelid speculum was then placed in the eye. A paracentesis port was created and approximately 0.5 mL of preservative free Lidocaine was then injected into the eye. Viscoelastic was then injected to inflate the anterior chamber. A temporal clear corneal wound was created. A continuous circular capsulorrhexis was performed. The nucleus was then hydrodissected with BSS and removed with phacoemulsification. The remaining cortical material was irrigated and aspirated. Viscoelastic was injected to inflate the capsular bag and the intraocular lens was then implanted into the capsular bag. The remaining Viscoelastic was irrigated and aspirated from the eye. The IOL was noted to be well centered and completely covered by the anterior capsulorrhexis. Topical vancomycin was placed and the eye patched and shielded. All wounds were tested and found to be watertight. No suture was placed. The eye was then shielded. The patient was then discharged from the operating room in stable condition. BETSY HANSEN M.D. [id number]
== END 2017-11-28 10:45 | disposition home or self-care (01) ==
LOC: JASU-SURG 07:25
PROVIDERS: ATTEND Ophthalmology
PROC: 08RJ3JZ Replacement of Right Lens with Synthetic Substitute, Percutaneous Approach (ICD-10-PCS; principal; 2017-11-28 09:00)
DX: H26.9 Unspecified cataract (principal); E11.9 Type 2 diabetes mellitus without complications; I10 Essential (primary) hypertension

== ENCOUNTER 2020-09-08 05:05 | Day surgery (SDC) | payer OTHER ==
[2020-09-07 11:20] VITALS: BMI 29.9
[~2020-09-08 05:05] MED LIST: ACETAMINOPHEN 325 MG TABLET (FP) PO PRN; CYCLOPENTOLATE HCL 1% OPHTH SOLN 2 ML BOTTLE OP SCH; KETOROLAC TROMETHAMINE 0.5% EYE DROP 1 DROP DROPS OP SCH; OFLOXACIN 0.3% OPHTHALMIC SOLUTION 5 ML BOTTLE OP SCH; PHENYLEPHRINE 2.5% OPHTH SOLN 15 ML BOTTLE OP SCH; TROPICAMIDE 1% OPHTH SOLN 15 ML BOTTLE OP SCH
[2020-09-08] MEDS ORDERED: EPINEPHrine/PF 1 MG/1 ML (1:1,000) AMPULE ONE (07:08)
[2020-09-08] MEDS ORDERED: BSS (NA/CA/MG/K) BALANCED SALT SOLUTION OPHTH SOLN 15 ML BOTTLE ONE (07:09)
[2020-09-08] MEDS ORDERED: VANCOMYCIN 500 MG VIAL (RESTRICTED TO ID ONLY) ONE (07:09)
[2020-09-08] MEDS ORDERED: POVIDONE-IODINE 5% OPHTHALMIC PREP 30 ML SOLUTION ONE (07:09)
[2020-09-08] MEDS ORDERED: LIDOCAINE HCL/PF 1% SDV 5ML VIAL ONE (07:09)
[2020-09-08] MEDS ORDERED: TETRACAINE 0.5% OPHTH SOLN 2 ML BOTTLE TP ONE ×2 (07:32→09:04)
[2020-09-08] MEDS ORDERED: POVIDONE-IODINE 5% OPHTHALMIC PREP 30 ML SOLUTION OS ONE ×2 (07:33→09:05)
[2020-09-08] MEDS ORDERED: LIDOCAINE HCL 1% PRESERVATIVE FREE - 30ML VIAL IO ONE ×2 (07:34→09:12)
[2020-09-08] MEDS ORDERED: BSS (NA/CA/MG/K) BALANCED SALT SOLUTION OPHTH SOLN 15 ML BOTTLE OS ONE ×2 (07:34→09:12)
[2020-09-08] MEDS ORDERED: CHONDROITIN SU A/HYALUR SOD 1 KIT IO ONE ×2 (07:35→09:12)
[2020-09-08] MEDS ORDERED: EPINEPHrine/PF 1 MG/1 ML (1:1,000) AMPULE SQ ONE ×2 (07:36→09:19)
[2020-09-08] MEDS ORDERED: TROPICAMIDE 1% OPHTH SOLN 15 ML BOTTLE ONE (07:44)
[2020-09-08] MEDS ORDERED: KETOROLAC TROMETHAMINE 0.5% EYE DROP 1 DROP DROPS ONE (07:44)
[2020-09-08] MEDS ORDERED: OFLOXACIN 0.3% OPHTHALMIC SOLUTION 5 ML BOTTLE ONE (07:44)
[2020-09-08] MEDS ORDERED: CYCLOPENTOLATE HCL 1% OPHTH SOLN 2 ML BOTTLE ONE (07:45)
[2020-09-08] MEDS ORDERED: CYCLOPENTOLATE HCL 1% OPHTH SOLN 2 ML BOTTLE OS ONE ×3 (07:50→08:00)
[2020-09-08] MEDS ORDERED: OFLOXACIN 0.3% OPHTHALMIC SOLUTION 5 ML BOTTLE OS ONE ×3 (07:50→08:00)
[2020-09-08] MEDS ORDERED: PHENYLEPHRINE 2.5% OPHTH SOLN 15 ML BOTTLE OS ONE ×3 (07:50→08:00)
[2020-09-08] MEDS ORDERED: TROPICAMIDE 1% OPHTH SOLN 15 ML BOTTLE OS ONE ×3 (07:50→08:00)
[2020-09-08] MEDS ORDERED: KETOROLAC TROMETHAMINE 0.5% EYE DROP 1 DROP DROPS OS ONE ×3 (07:50→08:00)
[2020-09-08] MEDS ORDERED: TETRACAINE 0.5% OPHTH SOLN 2 ML BOTTLE ONE (08:22)
[2020-09-08] MEDS ORDERED: MIDAZOLAM HCL 2 MG/2 ML SINGLE DOSE VIAL ONE (09:01)
[2020-09-08 12:18] VITALS: TEMP 97.9
[2020-09-08 12:20] VITALS: BP 129/70; PULSE 64
== END 2020-09-08 11:00 | disposition home or self-care (01) ==
LOC: JASU-SURG 05:05
PROVIDERS: ATTEND Ophthalmology
PROC: 08RK3JZ Replacement of Left Lens with Synthetic Substitute, Percutaneous Approach (ICD-10-PCS; principal; 2020-09-08 09:00)
DX: H26.9 Unspecified cataract (principal)
CPT/HCPCS: 82962

== ENCOUNTER 2020-11-16 04:29 | Day surgery (SDC) | payer OTHER ==
[2020-11-15 12:50] VITALS: BMI 30.9
[2020-11-16] MEDS ORDERED: PROPOFOL 20 ML ONE (11:25)
[2020-11-16] MEDS ORDERED: LIDOCAINE HCL/PF 2% SDV 5ML VIAL ONE (11:25)
[2020-11-16] MEDS ORDERED: ePHEDrine SULFATE 50 MG/1 ML AMPULE ONE (11:49)
[2020-11-16] MEDS ORDERED: ONDANSETRON 4 MG/2 ML VIAL IVPUSH PRN ×2 (12:11→12:17)
[2020-11-16] MEDS ORDERED: ELECTROLYTE-148 SOLN 1,000 ML IV SCH (12:15)
[2020-11-16] MEDS ORDERED: PROMETHAZINE HCL 25 MG/1 ML VIAL IVPUSH PRN (12:17)
[2020-11-16] MEDS ORDERED: oxyCODONE HCL 5 MG TABLET PO PRN (12:17)
[2020-11-16 15:08] VITALS: BP 146/62
[2020-11-16 17:46] VITALS: PULSE 86; TEMP 98.2
== END 2020-11-16 15:30 | disposition home or self-care (01) ==
LOC: JASU-SURG 04:29
PROVIDERS: ATTEND Obstetrics & Gynecology
PROC: 0UDB7ZX Extraction of Endometrium, Via Natural or Artificial Opening, Diagnostic (ICD-10-PCS; principal; 2020-11-16 10:00)
PROC: 0UJD8ZZ Inspection of Uterus and Cervix, Via Natural or Artificial Opening Endoscopic (ICD-10-PCS; 2020-11-16 10:00)
DX: N95.0 Postmenopausal bleeding (principal); N85.8 Other specified noninflammatory disorders of uterus; N72 Inflammatory disease of cervix uteri; D25.0 Submucous leiomyoma of uterus
CPT/HCPCS: 82962; 88305-TC; 94760

== ENCOUNTER 2020-11-20 06:46 | Emergency (ER) | payer OTHER ==
[2020-11-20 07:02] VITALS: BMI 34.0
[2020-11-20 08:43] LABS: BASO % 0.9 % (0-2.0); EOS % 3.1 % (0-4.5); HEMATOCRIT 30.9 % (32.4-45.2); HEMOGLOBIN 10.4 GM/dL (10.7-15.3); LYMPH % 13.3 % (8-40); MCH 26.8 pg (25.7-33.7); MCHC 33.7 g/dl (32.0-36.0); MEAN CELL VOLUME 79.6 fl (80-96); MEAN PLT VOLUME 7.4 fl (7.5-11.1); MONO % 7.2 % (3.8-10.2); NEUT % 75.5 % (42.8-82.8); PLATELET COUNT 200 10^3/uL (134-434); RBC 3.89 M/mm3 (3.60-5.2); WHITE BLOOD COUNT 6.7 K/mm3 (4.0-10.0)
[2020-11-20 08:50] LABS: INR 1.1 (0.83-1.09); PROTHROMBIN TIME (PATIENT) 13.3 SEC (9.7-13.0)
[2020-11-20 08:52] LABS: ACTIVATED PTT 28.8 SECONDS (25.2-36.5)
[2020-11-20 09:07] LABS: CALCIUM 8.9 mg/dL (8.5-10.1)
[2020-11-20 09:08] LABS: ALBUMIN 3.1 g/dl (3.4-5.0); BLOOD UREA NITROGEN 22.9 mg/dL (7-18)
[2020-11-20 09:13] LABS: BILIRUBIN,TOTAL 0.5 mg/dL (0.2-1); TOT PROT 6.4 g/dl (6.4-8.2)
[2020-11-20 09:20] VITALS: TEMP 98
[2020-11-20] MEDS ORDERED: ACETAMINOPHEN 1000 MG/100 ML VIAL (NON FORMULARY) IVPB ONE (10:18)
[2020-11-20] MEDS ORDERED: ACETAMINOPHEN INJECTION 100 ML IVPB ONE (10:31)
[2020-11-20 12:46] LABS: BASO % 1.2 % (0-2.0); EOS % 2.5 % (0-4.5); HEMATOCRIT 30.5 % (32.4-45.2); HEMOGLOBIN 10.2 GM/dL (10.7-15.3); MCH 26.9 pg (25.7-33.7); MCHC 33.4 g/dl (32.0-36.0); MEAN CELL VOLUME 80.6 fl (80-96); MEAN PLT VOLUME 7.7 fl (7.5-11.1); MONO % 8.2 % (3.8-10.2); NEUT % 68.1 % (42.8-82.8); PLATELET COUNT 209 10^3/uL (134-434); RBC 3.79 M/mm3 (3.60-5.2); RDW 15.8 % (11.6-15.6); WHITE BLOOD COUNT 6.9 K/mm3 (4.0-10.0)
[2020-11-20 15:59] VITALS: BP 134/46; PULSE 64
== END 2020-11-20 15:44 | disposition home or self-care (01) ==
LOC: JER 06:46
PROC: 3E033NZ Introduction of Analgesics, Hypnotics, Sedatives into Peripheral Vein, Percutaneous Approach (ICD-10-PCS; principal; 2020-11-20)
DX: N93.9 Abnormal uterine and vaginal bleeding, unspecified (principal)
CPT/HCPCS: 36415; 80053; 85025; 85610; 85730; 86850; 86900; 86901; 93005; 93010; 99284-25; J0131

== ENCOUNTER 2021-03-16 15:16 | Emergency (ER) | payer OTHER ==
[2021-03-16] MEDS ORDERED: CASIRIVIMAB/IMDEVIMAB 10 ML in SODIUM CHLORIDE 100 ML IVPB ONE (15:19)
[2021-03-16 16:18] VITALS: BP 123/48; PULSE 88; TEMP 98.6; BMI 29.5
[2021-03-16 17:47] LABS: EOS % 3.8 % (0-4.5); HEMOGLOBIN 10.1 GM/dL (10.7-15.3); LYMPH % 15.4 % (8-40); MCH 24.7 pg (25.7-33.7); MCHC 32.5 g/dl (32.0-36.0); MEAN CELL VOLUME 76.1 fl (80-96); MEAN PLT VOLUME 7.3 fl (7.5-11.1); NEUT % 21.8 % (42.8-82.8); PLATELET COUNT 243 10^3/uL (134-434); RBC 4.08 M/mm3 (3.60-5.2); WHITE BLOOD COUNT 5.4 K/mm3 (4.0-10.0)
[2021-03-16 18:00] LABS: ALBUMIN 3.2 g/dl (3.4-5.0); BLOOD UREA NITROGEN 29.3 mg/dL (7-18)
[2021-03-16 18:03] LABS: CREATININE 1.3 mg/dL (0.55-1.3)
[2021-03-16 18:05] LABS: BILIRUBIN,TOTAL 0.4 mg/dL (0.2-1); TOT PROT 7.3 g/dl (6.4-8.2)
[2021-03-16 18:27] LABS: ANISOCYTOSIS 2+; MACROCYTOSIS 0; OVALOCYTE 1+; PLATELET ESTIMATE NORMAL
== END 2021-03-16 20:47 | disposition home or self-care (01) ==
LOC: JCOVINFU 15:16
PROC: 3E033GC Introduction of Other Therapeutic Substance into Peripheral Vein, Percutaneous Approach (ICD-10-PCS; principal; 2021-03-16)
DX: U07.1 COVID-19 (principal)
CPT/HCPCS: 36415; 80053; 85025; 99284-25; Q0240

== ENCOUNTER 2023-04-23 12:22 | Emergency (ER) | payer OTHER ==
[2023-04-23 12:49] VITALS: RESP 16; TEMP 97.8
[2023-04-23 14:05] LABS: BASO % 0.5 % (0-2.0); EOS % 5.5 % (0-4.5); HEMATOCRIT 38.9 % (32.4-45.2); HEMOGLOBIN 12.8 GM/dL (10.7-15.3); LYMPH % 13.4 % (8-40); MEAN CELL VOLUME 87.8 fl (80-96); MEAN PLT VOLUME 7.7 fl (7.5-11.1); MONO % 7.7 % (3.8-10.2); NEUT % 72.9 % (42.8-82.8); PLATELET COUNT 195 10^3/uL (134-434); RBC 4.44 M/mm3 (3.60-5.2); RDW 14.1 % (11.6-15.6); VENOUS BASE EXCESS -0.4 mmol/L (-2-2); VENOUS O2 SATURATION 29.7 % (70-80); VENOUS PCO2 51.8 mmHg (38-52); VENOUS PH 7.325 (7.310-7.410); WHITE BLOOD COUNT 5.9 K/mm3 (4.0-10.0)
[2023-04-23 14:11] LABS: INR 0.99 (0.83-1.09); PROTHROMBIN TIME (PATIENT) 11.5 SEC (9.7-13.0)
[2023-04-23 14:13] LABS: ACTIVATED PTT 30.5 SECONDS (25.2-36.5)
[2023-04-23 14:30] LABS: POTASSIUM 4.6 mmol/L (3.5-5.1)
[2023-04-23 14:32] LABS: ALBUMIN 3.7 g/dl (3.4-5.0); BLOOD UREA NITROGEN 23.6 mg/dL (7-18); CALCIUM 9.5 mg/dL (8.5-10.1); MAGNESIUM 1.9 mg/dL (1.8-2.4)
[2023-04-23 14:36] LABS: CREATININE 1.1 mg/dL (0.55-1.3)
[2023-04-23 14:37] LABS: BILIRUBIN,TOTAL 0.8 mg/dL (0.2-1); TOT PROT 7.6 g/dl (6.4-8.2)
[2023-04-24 09:59] VITALS: BP 124/72; PULSE 85
== END 2023-04-23 16:49 | disposition home or self-care (01) ==
LOC: JER 12:22
DX: M25.512 Pain in left shoulder (principal); R20.2 Paresthesia of skin; M54.9 Dorsalgia, unspecified; R07.89 Other chest pain; M54.2 Cervicalgia
CPT/HCPCS: 36415; 71045-TC-FY; 80053; 82803; 83735; 84484; 85025; 85610; 85730; 93005; 93010; 99285-25